=== PATIENT | male | born 1930 | race Caucasian/White ===

== ENCOUNTER → 2019-08-28 | Outpatient (CLI) | payer MEDICARE ==
--- NOTE | 2019-08-28 13:58 | XR ---
EXAMINATION TYPE: XR Hip Complete LT DATE OF EXAM: 08/28/2019 CLINICAL HISTORY: pain TECHNIQUE: AP and frogleg views of the left hip are obtained. COMPARISON: None. FINDINGS: There is no acute fracture/dislocation evident. The joint space appears mildly narrowed. The overlying soft tissue appears unremarkable. IMPRESSION: 1. There is no acute fracture or dislocation.ICD 10 NO FRACTURE, INITIAL EVALUATION
== END | disposition home or self-care (01) ==
LOC: RADXRMAIN 10:14
PROVIDERS: ATTEND Family Medicine
DX: M25.559 Pain in unspecified hip (principal)
CPT/HCPCS: 73502

== ENCOUNTER 2019-10-09 14:42 | Inpatient (IN) | payer MEDICARE ==
--- NOTE | 2019-10-09 14:59 | ED ---
General Adult HPI - General Chief complaint: Fall Stated complaint: fall Time Seen by Provider: 10/09/19 14:46 Source: patient Mode of arrival: EMS - History of Present Illness Initial comments: Dictation was produced using [employer] dictation software. please excuse any gramma tical, word or spelling errors. This patient was cared for during a federal and state declared state of emergency secondary to Covid 19 Chief Complaint: Patient is an 88-year-old male presents after fall. History of Present Illness: An is an 88-year-old male who has past medical history of Parkinson's disease. He lives at home alone. At 3 AM he got up to go get a drink of water. Patient normally ambulate with walker. Patient states that he fell. He states that he fell because he probably was dizzy. He was too weak to get up. Patient had milk delivery that was done today. When milk delivery service noted that she did not answer the door there was concern. Enforcement was called and patient was found to be on the ground. Patient denies any pain complaints at this time. States that he has a family friend that takes care of him and checks on him every once in a while. Patient has some left shoulder pain. Denies any other complaints.. Denies any dizziness. No fever, chills or night sweats. The ROS documented in this emergency department record has been reviewed and confirmed by me. Those systems with pertinent positive or negative responses have been documented in the HPI. All other systems are other negative and/or noncontributory. PHYSICAL EXAM: General Impression: Alert and oriented x3, not in acute distress HEENT: Normocephalic atraumatic, extra-ocular movements intact, pupils equal and reactive to light bilaterally, mucous membranes moist. Cardiovascular: Heart regular rate and rhythm Chest: Able to complete full sentences, no retractions, no tachypnea Abdomen: abdomen soft, non-tender, non-distended, no organomegaly Musculoskeletal: Pulses present and equal in all extremities, no peripheral edema Motor: no focal deficits noted Neurological: CN II-XII grossly intact, no focal motor or sensory deficits noted Skin: Erythematous skin to the bilateral rib margins anteriorly, bilateral knees Psych: Normal affect and mood ED course: 88 Old male with past medical history of Parkinson's disease presents after fall. Vital signs upon arrival are within acceptable limits. Laboratory evaluation obtained. No leukocytosis. CBC is within acceptable limits. Coag panel is negative. Metabolic panel shows no electrolyte derangement. There is however no onset elevated liver markers. This is unclear what caused this. Patient also has elevated creatinine kinase of 907. Troponin is 0.041. This is likely from musculoskeletal injury. Urinalysis shows no infection. Computed tomography scan of the head C-spine is negative. Shoulder x-ray pelvis x-ray shows no acute processes. Chest x-ray shows small density in the right medial lung base concerning for possible infiltrate. Patient having respiratory symptoms however considering his age and clinical presentation is concerned that perhaps he does have a pulmonary infection. Patient given that the medicine that ceftriaxone. Patient started on intravenous fluids. Case is discussed with Dr. Bernardino Bradshaw. Serum patient's social situation I do not believe is safe for patient be discharged home. Patient be admitted EKG interpretation: Ventricular rate 70, sinus rhythm, OK interval 154, QRS 84, QTC 444. No OK prolongation, no QTC prolongation, no ST or T-wave changes noted. No old EKG for comparison. Overall, this EKG is unremarkable - Related Data Home Medications Medication Instructions Recorded Confirmed Acetaminophen [Tylenol Arthritis] 650 mg PO DAILY PRN 10/09/19 10/09/19 Aspirin EC [Ecotrin Low Dose] 81 mg PO DAILY 10/09/19 10/09/19 Carbidopa-Levodopa 25-100 mg 1 tab PO BID@0800,1400 10/09/19 10/09/19 [Sinemet 25-100] Carbidopa-Levodopa ER 50-200Mg 1 tab PO BID@0800,1400 10/09/19 10/09/19 [Sinemet ER 50-200] Ipratropium-Albuterol Nebulize 3 ml INHALATION RT-QID PRN 10/09/19 10/09/19 [Duoneb 0.5 mg-3 mg/3 ml Soln] Melatonin 5 mg PO HS 10/09/19 10/09/19 Omeprazole 20 mg PO DAILY PRN 10/09/19 10/09/19 Tamsulosin [Flomax] 0.4 mg PO DAILY 10/09/19 10/09/19 amantadine HCL [Amantadine] 100 mg PO DAILY 10/09/19 10/09/19 Allergies Allergy/AdvReac Type Severity Reaction Status Date / Time No Known Allergies Allergy Unverified 10/09/19 15:39 Review of Systems ROS Statement: Those systems with pertinent positive or pertinent negative responses have been documented in the HPI. ROS Other: All systems not noted in ROS Statement are negative. Past Medical History Past Medical History: GERD/Reflux History of Any Multi-Drug Resistant Organisms: VRE Date of last positivie culture/infection: 08/09/19 MDRO Source:: Urine Past Psychological History: No Psychological Hx Reported Smoking Status: Never smoker Past Alcohol Use History: Occasional Past Drug Use History: None Reported Course Vital Signs 10/09/19 10/09/19 10/09/19 14:43 15:32 16:05 Temperature 97.5 F L Pulse Rate 69 63 64 Respiratory 18 18 18 Rate Blood Pressure 159/83 154/79 158/79 O2 Sat by Pulse 97 97 95 Oximetry Medical Decision Making - Lab Data Result diagrams: 10/09/19 15:03 10/09/19 15:03 Lab Results 10/09/19 10/09/19 10/09/19 Range/Units 15:03 15:03 15:03 WBC 8.9 (3.8-10.6) k/uL RBC 4.11 L (4.30-5.90) m/uL Hgb 11.7 L (13.0-17.5) gm/dL Hct 37.0 L (39.0-53.0) % MCV 90.1 (80.0-100.0) fL MCH 28.5 (25.0-35.0) pg MCHC 31.6 (31.0-37.0) g/dL RDW 14.4 (11.5-15.5) % Plt Count 143 L (150-450) k/uL Neutrophils % 86 % Lymphocytes % 7 % Monocytes % 5 % Eosinophils % 1 % Basophils % 0 % Neutrophils # 7.7 (1.3-7.7) k/uL Lymphocytes # 0.6 L (1.0-4.8) k/uL Monocytes # 0.5 (0-1.0) k/uL Eosinophils # 0.1 (0-0.7) k/uL Basophils # 0.0 (0-0.2) k/uL PT 11.3 (9.0-12.0) sec INR 1.1 (<1.2) APTT 25.2 (22.0-30.0) sec Sodium 139 (137-145) mmol/L Potassium 3.6 (3.5-5.1) mmol/L Chloride 106 (98-107) mmol/L Carbon Dioxide 27 (22-30) mmol/L Anion Gap 6 mmol/L BUN 19 (9-20) mg/dL Creatinine 1.15 (0.66-1.25) mg/dL Est GFR (CKD-EPI)AfAm 66 (>60 ml/min/1.73 sqM) Est GFR (CKD-EPI)NonAf 57 (>60 ml/min/1.73 sqM) Glucose 109 H (74-99) mg/dL Plasma Lactic Acid Asif (0.7-2.0) mmol/L Calcium 8.9 (8.4-10.2) mg/dL Magnesium 1.6 (1.6-2.3) mg/dL Total Bilirubin 3.2 H (0.2-1.3) mg/dL AST 518 H (17-59) U/L ALT 331 H (4-49) U/L Alkaline Phosphatase 274 H (38-126) U/L Creatine Kinase 907 H (55-170) U/L Troponin I (0.000-0.034) ng/mL Total Protein 6.0 L (6.3-8.2) g/dL Albumin 3.3 L (3.5-5.0) g/dL Urine Color Urine Appearance (Clear) Urine pH (5.0-8.0) Ur Specific [place] (1.001-1.035) Urine Protein (Negative) Urine Glucose (UA) (Negative) Urine Ketones (Negative) Urine Blood (Negative) Urine Nitrite (Negative) Urine Bilirubin (Negative) Urine Urobilinogen (<2.0) mg/dL Ur Leukocyte Esterase (Negative) Urine RBC (0-5) /hpf Urine WBC (0-5) /hpf Ur Squamous Epith Cells (0-4) /hpf Hyaline Casts (0-2) /lpf Urine Mucus (None) /hpf 10/09/19 10/09/19 10/09/19 Range/Units 15:03 15:03 16:05 WBC (3.8-10.6) k/uL RBC (4.30-5.90) m/uL Hgb (13.0-17.5) gm/dL Hct (39.0-53.0) % MCV (80.0-100.0) fL MCH (25.0-35.0) pg MCHC (31.0-37.0) g/dL RDW (11.5-15.5) % Plt Count (150-450) k/uL Neutrophils % % Lymphocytes % % Monocytes % % Eosinophils % % Basophils % % Neutrophils # (1.3-7.7) k/uL Lymphocytes # (1.0-4.8) k/uL Monocytes # (0-1.0) k/uL Eosinophils # (0-0.7) k/uL Basophils # (0-0.2) k/uL PT (9.0-12.0) sec INR (<1.2) APTT (22.0-30.0) sec Sodium (137-145) mmol/L Potassium (3.5-5.1) mmol/L Chloride (98-107) mmol/L Carbon Dioxide (22-30) mmol/L Anion Gap mmol/L BUN (9-20) mg/dL Creatinine (0.66-1.25) mg/dL Est GFR (CKD-EPI)AfAm (>60 ml/min/1.73 sqM) Est GFR (CKD-EPI)NonAf (>60 ml/min/1.73 sqM) Glucose (74-99) mg/dL Plasma Lactic Acid Asif 1.1 (0.7-2.0) mmol/L Calcium (8.4-10.2) mg/dL Magnesium (1.6-2.3) mg/dL Total Bilirubin (0.2-1.3) mg/dL AST (17-59) U/L ALT (4-49) U/L Alkaline Phosphatase (38-126) U/L Creatine Kinase (55-170) U/L Troponin I 0.041 H* (0.000-0.034) ng/mL Total Protein (6.3-8.2) g/dL Albumin (3.5-5.0) g/dL Urine Color Dark Yellow Urine Appearance Clear (Clear) Urine pH 7.0 (5.0-8.0) Ur Specific [place] 1.020 (1.001-1.035) Urine Protein 1+ H (Negative) Urine Glucose (UA) Negative (Negative) Urine Ketones Negative (Negative) Urine Blood Moderate H (Negative) Urine Nitrite Negative (Negative) Urine Bilirubin 1+ H (Negative) Urine Urobilinogen >12.0 (<2.0) mg/dL Ur Leukocyte Esterase Negative (Negative) Urine RBC 1 (0-5) /hpf Urine WBC 3 (0-5) /hpf Ur Squamous Epith Cells <1 (0-4) /hpf Hyaline Casts 4 H (0-2) /lpf Urine Mucus Rare H (None) /hpf Disposition Clinical Impression: Fall, Rhabdomyolysis Disposition: ADMITTED IP TO THIS HOSP Condition: Fair Is patient prescribed a controlled substance at d/c from ED?: No Referrals: Bernardino Bradshaw DO [Primary Care Provider] - 1-2 days Decision Time: 16:55
[2019-10-09 15:19] LABS: Basophils % (A) 0 %; Eosinophils # (A) 0.1 k/uL (0-0.7); Eosinophils % (A) 1 %; HGB 11.7 gm/dL (13.0-17.5); Lymphocytes # (A) 0.6 k/uL (1.0-4.8); Lymphocytes % (A) 7 %; MCH 28.5 pg (25.0-35.0); MCHC 31.6 g/dL (31.0-37.0); MCV 90.1 fL (80.0-100.0); Mean Platelet Volume 6.9; Monocytes # (A) 0.5 k/uL (0-1.0); Monocytes % (A) 5 %; Neutrophils # (A) 7.7 k/uL (1.3-7.7); Neutrophils % (A) 86 %; Platelet Count 143 k/uL (150-450); RBC 4.11 m/uL (4.30-5.90); RDW 14.4 % (11.5-15.5); WBC 8.9 k/uL (3.8-10.6)
[2019-10-09 15:28] LABS: Albumin 3.3 g/dL (3.5-5.0); Calcium 8.9 mg/dL (8.4-10.2); Magnesium 1.6 mg/dL (1.6-2.3); Potassium 3.6 mmol/L (3.5-5.1); Total Bilirubin 3.2 mg/dL (0.2-1.3)
--- NOTE | 2019-10-09 15:43 | CT ---
EXAMINATION TYPE: CT brain kayleen guerra con DATE OF EXAM: 10/09/2019 COMPARISON: None HISTORY: Fall. CT DLP: 1498.[address] of the brain was performed. The ventricles, basal cisterns and sulci overlying the cerebral convexities demonstrate mild enlargem ent. There is no evidence for intracranial hemorrhage or sulcal effacement. There is decreased attenuatio n about the periventricular white matter and deep white matter of both cerebral hemispheres, compatib le with chronic small vessel ischemia. No mass effects are seen. If symptoms persist consider MRI. Osseous calvarium is intact. IMPRESSION: 1. Age related atrophic and chronic small vessel ischemic change without acute intracranial process seen at this time. CT Cervical Spine: Unenhanced CT of the cervical spine was performed with bone and soft tissue window settings submitted . Coronal and sagittal reconstruction is obtained. There is normal alignment and prevertebral soft tissues. No evidence for acute cervical fracture . Scattered degenerative disc disease and spondylosis. Biapical scarring. IMPRESSION: 1. No evidence for acute fracture or subluxation of the cervical spine.
[2019-10-09 15:50] LABS: INR 1.1 (<1.2); Partial Thromboplastin Time 25.2 sec (22.0-30.0); Prothrombin Time 11.3 sec (9.0-12.0)
[2019-10-09 16:25] LABS: Appearance,Urine Clear (Clear); Bilirubin,Urine 1+ (Negative); Blood,Urine Moderate (Negative); Color,Urine Dark Yellow; Glucose,Urine (UA) Negative (Negative); Hyaline Casts,Urine 4 /lpf (0-2); Ketones,Urine Negative (Negative); Leukocyte Esterase,Urine Negative (Negative); Mucus,Urine Rare /hpf; Nitrite,Urine Negative (Negative); Protein,Urine 1+ (Negative); RBC,Urine 1 /hpf (0-5); Squamous Epithelial Cell,Urine <1 /hpf (0-4); Urobilinogen,Urine >12.0 mg/dL (<2.0); WBC,Urine 3 /hpf (0-5)
--- NOTE | 2019-10-09 16:25 | XR ---
EXAMINATION TYPE: XR shoulder complete LT DATE OF EXAM: 10/09/2019 CLINICAL HISTORY: pain COMPARISON: NONE TECHNIQUE: Three views of the left shoulder are obtained. FINDINGS: There is no acute fracture/dislocation evident. The acromioclavicular and glenohumeral bartolo int spaces appear within normal limits. The visualized ribs are intact and unremarkable. IMPRESSION: 1. There is no acute fracture or dislocation. ICD 10 NO FRACTURE, INITIAL EVALUATION
--- NOTE | 2019-10-09 16:26 | XR ---
EXAMINATION TYPE: XR pelvis AP view DATE OF EXAM: 10/09/2019 CLINICAL HISTORY: pain TECHNIQUE: Single view the pelvis is submitted. FINDINGS: No evidence for fracture, dislocation or bony lesion. Joint spaces are well-preserved. S I joints appear symmetric. IMPRESSION: 1. No acute fracture or dislocation seen. ICD 10 NO FRACTURE, INITIAL EVALUATION
--- NOTE | 2019-10-09 16:28 | XR ---
EXAMINATION TYPE: XR chest 1V portable DATE OF EXAM: 10/09/2019 HISTORY: Shortness of breath. COMPARISON: None. TECHNIQUE: Single view of the chest is submitted. FINDINGS: Demonstrated are scattered senescent parenchymal change. Increased density right medial lung base may reflect underlying infiltrate. Correlate for pneumonia. Progress studies are advised. The heart is stable. Hilar and mediastinal structures are within normal limits. Degenerative changes are seen of the dorsal spine. IMPRESSION: 1. Increased density right medial lung base may reflect underlying infiltrate. Correlate for pneumon ia. Progress studies are advised.
[2019-10-09] MEDS ORDERED: cefTRIAXone IN SWFI 1,000 MG/10 ML SYRINGE IVP STA (16:40)
[2019-10-09] MEDS ORDERED: AZITHROMYCIN 500 MG in SODIUM CHLORIDE 0.9% 250 ML IVPB STA (16:40)
[2019-10-09] MEDS ORDERED: NALOXONE 0.4 MG/ML 1 ML VIAL IV PRN (16:52)
[2019-10-09] MEDS: SODIUM CHLORIDE 0.9% 1,000 ML IV SCH (17:28)
[2019-10-09] MEDS ORDERED: PANTOPRAZOLE 40 MG TABLET PO PRN (19:57)
[2019-10-09] MEDS ORDERED: ACETAMINOPHEN TAB 325 MG TAB PO PRN (19:57)
[2019-10-09] MEDS ORDERED: IPRATROPIUM-ALBUTEROL 3 ML NEB INHALATION PRN (19:57)
[2019-10-09] MEDS: MELATONIN 5 MG TABLET PO SCH (22:48)
[2019-10-10] MEDS: CARBIDOPA-LEVODOPA 25-100 MG 1 EACH TAB PO SCH ×2 (07:58→14:54)
[2019-10-10] MEDS: ASPIRIN 81 MG PO SCH (07:58)
[2019-10-10] MEDS: CARBIDOPA-LEVODOPA ER 50-200MG 1 EACH TABLET.ER PO SCH ×2 (07:58→14:54)
[2019-10-10] MEDS: TAMSULOSIN 0.4 MG CAP.ER.24H PO SCH (07:58)
[2019-10-10 10:24] LABS: HCT 34.7 % (39.0-53.0); MCH 28.9 pg (25.0-35.0); MCHC 31.6 g/dL (31.0-37.0); MCV 91.4 fL (80.0-100.0); Mean Platelet Volume 8.6; Platelet Count 115 k/uL (150-450); RDW 14.4 % (11.5-15.5); WBC 6.6 k/uL (3.8-10.6)
[2019-10-10 10:41] LABS: Albumin 2.8 g/dL (3.5-5.0); Calcium 8.3 mg/dL (8.4-10.2); Potassium 3.8 mmol/L (3.5-5.1); Total Bilirubin 1.1 mg/dL (0.2-1.3); Total Protein 5.3 g/dL (6.3-8.2)
[2019-10-10 14:41] VITALS: BMI 27.1
[2019-10-10] MEDS ORDERED: Magnesium Replacement Protocol 1 EACH MISC MISCELLANE PRN (16:08)
[2019-10-10] MEDS ORDERED: IPRATROPIUM-ALBUTEROL 3 ML NEB INHALATION PRN (16:14)
--- NOTE | 2019-10-10 16:21 | P.HPIM ---
History of Present Illness H&P Date: 10/10/19 Chief Complaint: Status post fall, on ground X 10 hrs This is an 88-year-old gentleman with a history of Parkinson's disease, gastroesophageal reflux disease, occasional beer intake and multiple other medical issues. Patient had recently completed 33 days and subacute rehab at [facility] returning home alone a few weeks ago. Patient states he acute gotten up to the bathroom, voided, then proceeded to get a drink of water, then fell. He landed on his right side, radiology studies reported no dislocations, no fractures .He was unable to get back up and was not wearing his "first alert " band. He laid on the floor from approximately 0300 to 1300, when he was discovered by the [employer] it service delivery manager, who notified authorities that patient was not answering the door. He denies any alcohol intake. Denies fever or chills. Denies shortness of breath, denies cough. Denies chest pain, palpitations. Patient said he was probably dizzy. Patient normally ambulates with a walker. Currently denies lightheadedness dizziness or focal deficits. Afebrile, normal WBC. Hemoglobin 11.7, platelets 143. Sodium 139, potassium 3.6, BUN 19, creatinine 1.15. Glucose 109. T bili 3.2, AST 518, ALT 331, alk phos 274, creatinine kinase 907. Troponin 0.041. EKG sinus rhythm with PACs, inferior infarct, age undetermined/no prior EKG for comparison. Total protein 6, albumin 3.3. UA with rare mucus, 4 hyaline casts, negative leukocytes, 1+ bili, moderate blood and negative nitrates, 1+ protein. Chest x-ray reporting increased density right medial lung base possible underlying infiltrate, correlate for pneumonia. Received IV fluids and IV antibiotics. Review of Systems ROS Statement: Those systems with pertinent positive or pertinent negative responses have been documented in the HPI. ROS Other: All systems not noted in ROS Statement are negative. Past Medical History Past Medical History: GERD/Reflux, Neurologic Disorder Additional Past Medical History / Comment(s): parkinsons History of Any Multi-Drug Resistant Organisms: VRE Date of last positivie culture/infection: 08/09/19 MDRO Source:: Urine Additional Past Surgical History / Comment(s): hemorrhoidectomy Past Anesthesia/Blood Transfusion Reactions: No Reported Reaction Past Psychological History: No Psychological Hx Reported Smoking Status: Never smoker Past Alcohol Use History: Occasional Past Drug Use History: None Reported - Past Family History Father Additional Family Medical History / Comment(s): pt. states nobody in his family really had any major health issues Medications and Allergies Home Medications Medication Instructions Recorded Confirmed Type Acetaminophen [Tylenol Arthritis] 650 mg PO DAILY PRN 10/09/19 10/09/19 History Aspirin EC [Ecotrin Low Dose] 81 mg PO DAILY 10/09/19 10/09/19 History Carbidopa-Levodopa 25-100 mg 1 tab PO BID@0800,1400 10/09/19 10/09/19 History [Sinemet 25-100] Carbidopa-Levodopa ER 50-200Mg 1 tab PO BID@0800,1400 10/09/19 10/09/19 History [Sinemet ER 50-200] Ipratropium-Albuterol Nebulize 3 ml INHALATION RT-QID PRN 10/09/19 10/09/19 History [Duoneb 0.5 mg-3 mg/3 ml Soln] Melatonin 5 mg PO HS 10/09/19 10/09/19 History Omeprazole 20 mg PO DAILY PRN 10/09/19 10/09/19 History Tamsulosin [Flomax] 0.4 mg PO DAILY 10/09/19 10/09/19 History amantadine HCL [Amantadine] 100 mg PO DAILY 10/09/19 10/09/19 History Allergies Allergy/AdvReac Type Severity Reaction Status Date / Time No Known Allergies Allergy Unverified 10/09/19 15:39 Physical Exam Vitals: Vital Signs Temp Pulse Pulse Resp BP BP Pulse Ox 10/10/19 08:00 64 18 10/10/19 03:30 98.2 F 64 18 149/73 95 10/09/19 23:25 97.9 F 65 18 116/61 95 10/09/19 20:00 18 10/09/19 19:30 98.2 F 60 18 145/68 97 10/09/19 19:09 68 18 10/09/19 18:10 97.9 F 68 18 151/69 98 10/09/19 17:34 64 18 151/83 97 10/09/19 16:05 64 18 158/79 95 10/09/19 15:32 63 18 154/79 97 10/09/19 14:43 97.5 F L 69 18 159/83 97 Intake and Output 10/09/19 10/10/19 10/10/19 22:59 06:59 14:59 Output Total 100 100 Balance -100 -100 Output: Urine 100 100 Other: Voiding Method Urinal Urinal Urinal # Voids 1 1 # Bowel Movements 1 1 Weight 79.696 kg 81 kg PHYSICAL EXAM: VITAL SIGNS: [As above] GENERAL: Sitting up in bed, no acute HEENT: Conjunctivae normal. eyes normal. Oral mucosa moist NECK: No JVD. No thyroid enlargement. No LNs CARDIOVASCULAR: S1, S2 regular.. No murmur RESPIRATION: Breath sounds diminished in the bases. No rhonchi or crackles. No bronchial breathing. ABDOMEN: Soft, nontender . No guarding. no masses palpable. No ascites, No hepatosplenomegaly.Bowel sounds heard. LEGS: No edema. no swelling PSYCHIATRY: Alert and oriented X3, mood and affect normal. NERVOUS SYSTEM: Cranial N 2-12 grossly normal. Moves all 4 limbs. Diffuse w eakness, No focal deficits. Strength and sensation grossly intact.. Skin: Bruising distal from anterior right rib cage, no rash Joints: No active swelling. No inflammation. Lymphatic system. No LN neck axilla or groin. Results CBC & Chem 7: 10/10/19 10:14 10/10/19 10:14 Labs: Abnormal Lab Results - Last 24 Hours (Table) 10/09/19 10/09/19 10/09/19 Range/Units 15:03 15:03 15:03 RBC 4.11 L (4.30-5.90) m/uL Hgb 11.7 L (13.0-17.5) gm/dL Hct 37.0 L (39.0-53.0) % Plt Count 143 L (150-450) k/uL Lymphocytes # 0.6 L (1.0-4.8) k/uL Glucose 109 H (74-99) mg/dL Total Bilirubin 3.2 H (0.2-1.3) mg/dL AST 518 H (17-59) U/L ALT 331 H (4-49) U/L Alkaline Phosphatase 274 H (38-126) U/L Creatine Kinase 907 H (55-170) U/L Troponin I 0.041 H* (0.000-0.034) ng/mL Total Protein 6.0 L (6.3-8.2) g/dL Albumin 3.3 L (3.5-5.0) g/dL Urine Protein (Negative) Urine Blood (Negative) Urine Bilirubin (Negative) Hyaline Casts (0-2) /lpf Urine Mucus (None) /hpf 10/09/19 Range/Units 16:05 RBC (4.30-5.90) m/uL Hgb (13.0-17.5) gm/dL Hct (39.0-53.0) % Plt Count (150-450) k/uL Lymphocytes # (1.0-4.8) k/uL Glucose (74-99) mg/dL Total Bilirubin (0.2-1.3) mg/dL AST (17-59) U/L ALT (4-49) U/L Alkaline Phosphatase (38-126) U/L Creatine Kinase (55-170) U/L Troponin I (0.000-0.034) ng/mL Total Protein (6.3-8.2) g/dL Albumin (3.5-5.0) g/dL Urine Protein 1+ H (Negative) Urine Blood Moderate H (Negative) Urine Bilirubin 1+ H (Negative) Hyaline Casts 4 H (0-2) /lpf Urine Mucus Rare H (None) /hpf Thrombosis Risk Factor Assmnt - Choose All That Apply Any of the Below Risk Factors Present?: Yes Each Factor Represents 1 point: Medical pt on bed rest, Obesity (BMI >25), Serious lung disease incl. pneumonia (< 1month) Other Risk Factors: Yes Each Risk Factor Represents 3 Points: Age 75 years or older Other congenital or acquired thrombophilia - If yes, enter type in comment: No Thrombosis Risk Factor Assessment Total Risk Factor Score: 6 Thrombosis Risk Factor Assessment Level: High Risk Assessment and Plan Assessment: Acute rhabdomyolysis ,Status post fall, laid on ground 10 hours Possible acute right lower lobe pneumonia, possible aspiration Possible acute UTI Elevated troponin, serial troponins in progress Hyperbilirubinemia, etiology unclear Elevated LFTs, etiology unclear Parkinson's disease Gastroesophageal reflux disease Mild protein calorie malnutrition Hypomagnesemia Gait dysfunction, uses a walker Medical debility Plan: Continue on current medication regime, monitoring and symptomatic treatment. Serial troponins ordered. Maintain IV fluid hydration. GI consulted regarding elevated LFTs .Close monitoring of LFTs, CK, renal function, electrolytes with repeat labs ordered for a.m. Speech therapy consulted for swallow evaluation/rule out aspiration. PT/OT consulted. Coronavirus testing ordered, suspect subacute rehab at discharge. Discussed with patient that he probably should consider living in an assisted living. Social work consulted. The impression and plan of care has been dictated as directed. : I performed a history and examination of this patient, discussed the same with the dictator. I agree with the dictator's note ,documented as a scribe. Any additional findings or plans will be noted.[id number]
[2019-10-10] MEDS: AZITHROMYCIN 500 MG in SODIUM CHLORIDE 0.9% 250 ML IVPB SCH (18:57)
[2019-10-10] MEDS: IPRATROPIUM-ALBUTEROL 3 ML NEB INHALATION SCH (19:05)
[2019-10-10] MEDS: SODIUM CHLORIDE 0.9% 1,000 ML IV SCH ×2 (20:05→21:31)
[2019-10-10] MEDS: MELATONIN 5 MG TABLET PO SCH (21:31)
[2019-10-11 07:17] LABS: Basophils % (A) 1 %; Eosinophils # (A) 0.4 k/uL (0-0.7); Eosinophils % (A) 7 %; HCT 35.2 % (39.0-53.0); HGB 10.9 gm/dL (13.0-17.5); Hypochromasia Slight; Lymphocytes # (A) 0.9 k/uL (1.0-4.8); Lymphocytes % (A) 17 %; MCH 28.5 pg (25.0-35.0); Mean Platelet Volume 7.5; Monocytes # (A) 0.3 k/uL (0-1.0); Monocytes % (A) 5 %; Neutrophils # (A) 3.6 k/uL (1.3-7.7); Neutrophils % (A) 68 %; Platelet Count 117 k/uL (150-450); RBC 3.83 m/uL (4.30-5.90); RDW 14.4 % (11.5-15.5); WBC 5.4 k/uL (3.8-10.6)
[2019-10-11 07:40] LABS: Albumin 2.7 g/dL (3.5-5.0); Calcium 8.4 mg/dL (8.4-10.2); Magnesium 1.7 mg/dL (1.6-2.3); Potassium 4.1 mmol/L (3.5-5.1); Total Bilirubin 0.6 mg/dL (0.2-1.3); Total Protein 5.3 g/dL (6.3-8.2)
[2019-10-11] MEDS: IPRATROPIUM-ALBUTEROL 3 ML NEB INHALATION SCH ×4 (08:05→19:53)
[2019-10-11] MEDS: TAMSULOSIN 0.4 MG CAP.ER.24H PO SCH (09:33)
[2019-10-11] MEDS: ASPIRIN 81 MG PO SCH ×2 (09:33→09:38)
[2019-10-11] MEDS: CARBIDOPA-LEVODOPA 25-100 MG 1 EACH TAB PO SCH ×2 (09:33→14:01)
[2019-10-11] MEDS: CARBIDOPA-LEVODOPA ER 50-200MG 1 EACH TABLET.ER PO SCH ×2 (09:33→14:01)
[2019-10-11] MEDS: AZITHROMYCIN 500 MG in SODIUM CHLORIDE 0.9% 250 ML IVPB SCH (10:30)
--- NOTE | 2019-10-11 12:07 | P.CONS ---
History of Present Illness - Reason for Consult Consult date: 10/10/19 Elevated liver enzymes Requesting physician: Bernardino Bradshaw - Chief Complaint Mechanical fall - History of Present Illness 88-year-old male with a medical history significant for Parkinson's disease, pneumonia and GERD who presented to the hospital secondary to a mechanical fall. The patient was found down and had been on the floor for an extended period of time. Patient was found to have elevated creatinine kinase of 905 and is being treated for rhabdomyolysis. He has no history of liver disease or alcohol abuse. He was found to have an acute elevation in his liver enzymes on presentation with a total bilirubin 3.2, alkaline phosphatase 274, AST 331 and ALT 274 which have improved with medical treatment with total bilirubin 1.1, alkaline phosphatase 217, AST 47 and ALT 217. Other laboratory evaluation significant for WBC 6.6, hemoglobin 11 and platelet count 115,000. Review of Systems REVIEW OF SYSTEMS: CONSTITUTIONAL: Denies any fevers, chills, weight change or fatigue. CARDIOVASCULAR: Denies any chest pain, palpitations high or low blood pressures RESPIRATORY: Denies any shortness of breath, hemoptysis or cough. GENITOURINARY: No dysuria or hematuria. MUSCULOSKELETAL: No weakness reported. SKIN: Denies any new rashes or lesions, jaundice or pallor. PSYCHIATRIC: Denies any depression or anxiety. NEUROLOGY: Denies headache, denies any new focal deficits. EARS/NOSE/THROAT: No recent hearing change, congestion, nasal discharge or sore throat. EYES: No pain in eyes, discharge or change in vision. GASTROINTESTINAL: As per HPI. 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 states nobody in his family really had any major health issues Medications and Allergies Home Medications Medication Instructions Recorded Confirmed Type Acetaminophen [Tylenol Arthritis] 650 mg PO DAILY PRN 10/09/19 10/09/19 History Aspirin EC [Ecotrin Low Dose] 81 mg PO DAILY 10/09/19 10/09/19 History Carbidopa-Levodopa 25-100 mg 1 tab PO BID@0800,1400 10/09/19 10/09/19 History [Sinemet 25-100] Carbidopa-Levodopa ER 50-200Mg 1 tab PO BID@0800,1400 10/09/19 10/09/19 History [Sinemet ER 50-200] Ipratropium-Albuterol Nebulize 3 ml INHALATION RT-QID PRN 10/09/19 10/09/19 History [Duoneb 0.5 mg-3 mg/3 ml Soln] Melatonin 5 mg PO HS 10/09/19 10/09/19 History Omeprazole 20 mg PO DAILY PRN 10/09/19 10/09/19 History Tamsulosin [Flomax] 0.4 mg PO DAILY 10/09/19 10/09/19 History amantadine HCL [Amantadine] 100 mg PO DAILY 10/09/19 10/09/19 History Allergies Allergy/AdvReac Type Severity Reaction Status Date / Time No Known Allergies Allergy Unverified 10/09/19 15:39 Physical Exam Vitals: Vital Signs Temp Pulse Pulse Resp BP BP Pulse Ox 10/10/19 12:00 69 18 122/73 94 L 10/10/19 08:00 64 18 10/10/19 03:30 98.2 F 64 18 149/73 95 10/09/19 23:25 97.9 F 65 18 116/61 95 10/09/19 20:00 18 10/09/19 19:30 98.2 F 60 18 145/68 97 10/09/19 19:09 68 18 10/09/19 18:10 97.9 F 68 18 151/69 98 10/09/19 17:34 64 18 151/83 97 10/09/19 16:05 64 18 158/79 95 10/09/19 15:32 63 18 154/79 97 10/09/19 14:43 97.5 F L 69 18 159/83 97 Intake and Output 10/09/19 10/10/19 10/10/19 22:59 06:59 14:59 Intake Total 240 Output Total 100 100 Balance -100 140 Intake: Oral 240 Output: Urine 100 100 Other: Voiding Method Urinal Urinal Urinal # Voids 1 1 # Bowel Movements 1 1 Weight 79.696 kg 81 kg On physical examination, patient appears comfortable in no apparent distress. HEAD: Normocephalic, atraumatic. EYES: No scleral icterus. No conjunctival injection. MOUTH: No lesions, tongue midline. NECK: Trachea midline, no gross abnormalities. CHEST: Clear to auscultation with no wheezing or rhonchi appreciated. HEART: S1S2 appreciated. ABDOMEN: Soft. Bowel sounds are positive. No organomegaly. No guarding or ri gidity. EXTREMITIES: No pedal edema. SKIN: No rashes, no jaundice. NEUROLOGIC: Alert and oriented x3, tremor. No focal deficits. Results CBC & Chem 7: 10/11/19 06:17 10/11/19 06:17 Labs: Abnormal Lab Results - Last 24 Hours (Table) 10/09/19 10/09/19 10/09/19 Range/Units 15:03 15:03 15:03 RBC 4.11 L (4.30-5.90) m/uL Hgb 11.7 L (13.0-17.5) gm/dL Hct 37.0 L (39.0-53.0) % Plt Count 143 L (150-450) k/uL Lymphocytes # 0.6 L (1.0-4.8) k/uL Chloride (98-107) mmol/L Glucose 109 H (74-99) mg/dL Calcium (8.4-10.2) mg/dL Total Bilirubin 3.2 H (0.2-1.3) mg/dL AST 518 H (17-59) U/L ALT 331 H (4-49) U/L Alkaline Phosphatase 274 H (38-126) U/L Creatine Kinase 907 H (55-170) U/L Troponin I 0.041 H* (0.000-0.034) ng/mL Total Protein 6.0 L (6.3-8.2) g/dL Albumin 3.3 L (3.5-5.0) g/dL Urine Protein (Negative) Urine Blood (Negative) Urine Bilirubin (Negative) Hyaline Casts (0-2) /lpf Urine Mucus (None) /hpf 10/09/19 10/10/19 10/10/19 Range/Units 16:05 10:14 10:14 RBC 3.80 L (4.30-5.90) m/uL Hgb 11.0 L (13.0-17.5) gm/dL Hct 34.7 L (39.0-53.0) % Plt Count 115 L (150-450) k/uL Lymphocytes # (1.0-4.8) k/uL Chloride 109 H (98-107) mmol/L Glucose 117 H (74-99) mg/dL Calcium 8.3 L (8.4-10.2) mg/dL Total Bilirubin (0.2-1.3) mg/dL AST 222 H (17-59) U/L ALT (4-49) U/L Alkaline Phosphatase 217 H (38-126) U/L Creatine Kinase 905 H (55-170) U/L Troponin I (0.000-0.034) ng/mL Total Protein 5.3 L (6.3-8.2) g/dL Albumin 2.8 L (3.5-5.0) g/dL Urine Protein 1+ H (Negative) Urine Blood Moderate H (Negative) Urine Bilirubin 1+ H (Negative) Hyaline Casts 4 H (0-2) /lpf Urine Mucus Rare H (None) /hpf US - abdomen: pending (Pending) Assessment and Plan (1) Elevated liver enzymes Narrative/Plan: 88-year-old male with multiple medical comorbidities who presented to the hospital secondary to a mechanical fall and was found to have elevation in creatinine kinase and is currently being treated for rhabdomyolysis. Patient's liver enzymes initially elevated on presentation have improved with total bilirubin 1.1, alkaline phosphatase 217, AST 47 and ALT 217. Suspicion is for elevation in liver enzymes secondary to rhabdomyolysis, with plan for acute viral hepatitis panel and ultrasound of liver to rule out any other underlying etiology. Full liver serology will be ordered if liver enzymes do not improve accordingly. Current Visit: Yes Status: Acute Code(s): R74.8 - ABNORMAL LEVELS OF OTHER SERUM ENZYMES SNOMED Code(s): 202781477 Plan: Supportive care Okay for diet as tolerated Avoid hepatotoxic medications Continue to monitor CBC, BMP, LFTs Ultrasound of the abdomen ordered Acute viral hepatitis panel ordered We will continue to monitor labs and clinically Thank you for allowing us to participate in the care of the patient
[2019-10-11] MEDS: SODIUM CHLORIDE 0.9% 1,000 ML IV SCH ×3 (13:49→20:34)
--- NOTE | 2019-10-11 13:56 | P.PN ---
Subjective Progress Note Date: 10/11/19 .This is an 88-year-old gentleman with a history of Parkinson's disease, gastroesophageal reflux disease, occasional beer intake and multiple other medical issues. Patient had recently completed 33 days and subacute rehab at [facility] returning home alone a few weeks ago. Patient states he acute gotten up to the bathroom, voided, then proceeded to get a drink of water, then fell. He landed on his right side, radiology studies reported no dislocations, no fractures .He was unable to get back up and was not wearing his "first alert " band. He laid on the floor from approximately 0300 to 1300, when he was discovered by the [employer] service delivery analyst, who notified authorities that patient was not answering the door. He denies any alcohol intake. Denies fever or chills. Denies shortness of breath, denies cough. Denies chest pain, palpitations. Patient said he was probably dizzy. Patient normally ambulates with a walker. Currently denies lightheadedness dizziness or focal deficits. Afebrile, normal WBC. Hemoglobin 11.7, platelets 143. Sodium 139, potassium 3.6, BUN 19, creatinine 1.15. Glucose 109. T bili 3.2, AST 518, ALT 331, alk phos 274, creatinine kinase 907. Troponin 0.041. EKG sinus rhythm with PACs, inferior infarct, age undetermined/no prior EKG for comparison. Total protein 6, albumin 3.3. UA with rare mucus, 4 hyaline casts, negative leukocytes, 1+ bili, moderate blood and negative nitrates, 1+ protein. Chest x-ray reporting increased density right medial lung base possible underlying infiltrate, correlate for pneumonia. Received IV fluids and IV antibiotics. 10/11/19 evaluated by GI with recommendations noted and appreciated. Hepatitis panel pending .Initially scheduled for ultrasound of liver and patient had consumed breakfast so rescheduled for tomorrow. Maintained on IV fluid hydration with LFTs, T bili, CPK improving. Good diet intake. Speech evaluation pending. Afebrile, normal WBC. Denies chest pain, palpitations or shortness of breath. Objective - Vital Signs Vital signs: Vital Signs Temp 98.7 F 10/11/19 09:25 Pulse 68 10/11/19 11:44 Resp 18 08/28/20 09:25 BP 132/77 10/11/19 09:25 Pulse Ox 93 L 10/11/19 09:25 Intake & Output 10/10/19 10/11/19 10/11/19 18:59 06:59 18:59 Intake Total 360 120 Output Total 100 Balance 260 120 Weight 81 kg 82.5 kg Intake: Oral 360 120 Output: Urine 100 Other: Voiding Method Urinal Urinal Urinal # Voids 1 1 # Bowel Movements 0 1 - Exam PHYSICAL EXAM: VITAL SIGNS: [As above] GENERAL: Sitting up in bed, no acute. HEENT: Conjunctivae normal. eyes normal. No scleral icterus. Oral mucosa moist NECK: No JVD. No thyroid enlargement. No LNs CARDIOVASCULAR: S1, S2 regular. No murmur RESPIRATION: Breath sounds diminished in the bases. No rhonchi or crackles. ABDOMEN: Soft, nontender . No guarding. no masses palpable. Positive Bowel sounds heard. LEGS: No edema. no swelling PSYCHIATRY: Alert and oriented X3, mood and affect normal. NERVOUS SYSTEM: Cranial N 2-12 grossly normal. Moves all 4 limbs. Diffuse weakness, No focal deficits. Strength and sensation grossly intact.. Skin: Bruising distal from anterior right rib cage, no rash - Labs CBC & Chem 7: 10/11/19 06:17 10/11/19 06:17 Labs: Abnormal Lab Results - Last 24 Hours (Table) 10/11/19 10/11/19 Range/Units 06:17 06:17 RBC 3.83 L (4.30-5.90) m/uL Hgb 10.9 L (13.0-17.5) gm/dL Hct 35.2 L (39.0-53.0) % Plt Count 117 L (150-450) k/uL Lymphocytes # 0.9 L (1.0-4.8) k/uL Chloride 108 H (98-107) mmol/L Glucose 103 H (74-99) mg/dL AST 106 H (17-59) U/L ALT 86 H (4-49) U/L Alkaline Phosphatase 177 H (38-126) U/L Creatine Kinase 332 H (55-170) U/L Total Protein 5.3 L (6.3-8.2) g/dL Albumin 2.7 L (3.5-5.0) g/dL Microbiology - Last 24 Hours (Table) 10/09/19 17:12 Blood Culture - Preliminary Blood No Growth after 24 hours Assessment and Plan Assessment: Acute rhabdomyolysis ,Status post fall, laid on ground 10 hours Possible acute right lower lobe pneumonia, possible aspiration Possible acute UTI Elevated troponin, serial troponins in progress Hyperbilirubinemia, etiology unclear Elevated LFTs, etiology unclear, suspected related to rhabdomyolysis, hepatitis panel pending, liver ultrasound pending Parkinson's disease Gastroesophageal reflux disease Mild protein calorie malnutrition Hypomagnesemia Gait dysfunction, uses a walker Medical debility Plan: Continue on current medication regime, monitoring and symptomatic treatment. Maintain IV fluid hydration. GI workup in progress including Ultrasound of liver pending. Crews virus testing pending. Continued close monitoring of LFTs, CK, hematology profile.Discharge planning in progress for subacute rehab. after gi w/u completed and coronavirus testing resulted. The impression and plan of care has been dictated as directed. : I performed a history and examination of this patient, discussed the same with the dictator. I agree with the dictator's note ,documented as a scribe. Any additional findings or plans will be noted.[id number]
--- NOTE | 2019-10-11 15:04 | CDI ---
Documentation Clarification Form Date: 10/11/2019 02:40:28 PM From: Angelita Fulton RN CCDS Admit Date: 10/09/2019 04:52:00 PM Patient Name: Akbar Salgado Visit Number: [id number] Discharge Date: ATTENTION: The Clinical Documentation Specialists (CDI) and [facility] Coding Staff appreciate your assistance in clarifying documentation. Please respond to the clarification below the line at the bottom and electronically sign. The CDI & [facility] Coding staff will review the response and follow-up if needed. Please note: Queries are made part of the Legal Health Record. If you have any questions, please contact the author of this message via ITS. Dr. Bernardino Bradshaw Please render your impression on the documentation of Rhabdomyolysis History/Risk Factors: 88-year-old male presents to the ED after being found on ground for 10 hours after a fall. Medical History: Parkinsons disease. The patient recently completed 33 days at subacute rehab returned home alone a few weeks ago. Patient admitted with Possible Aspiration Pneumonia, Acute Rhabdomyolysis and Possible Acute UTI Clinical Indicators: 10/08 CXR: Increased density right medial lung base may reflect underlying infiltrate. Labs: Wbc 10/08 8.9; Creatinine Kinase 10/08: 907; 10/09: 905; 10/10: 332 Treatment: 10/08- 0.9ns 100cchr; Rocephin Iv Daily; Azithromycin Iv Daily In your professional opinion, can you please clarify the etiology of the condition? Traumatic rhabdomyolysis due to fall Traumatic rhabdomyolysis due to prolonged immobility Non traumatic rhabdomyolysis due to medication (please specify) Non traumatic rhabdomyolysis due to infection (please specify) Other, please specify Unable to determine 10/14 TEMO Johnson NP Acute Traumatic Rhabdomyolysis secondary to fall with prolonged immobility laid on ground x10 hours. (Last Revision: February 2019) MTDD
[2019-10-11] MEDS ORDERED: amLODIPine 5 MG TAB PO STA (15:59)
[2019-10-11 16:49] LABS: Hepatitis A Antibody IgM Non-Reactive (Non-Reactive); Hepatitis B Core IgM Non-Reactive (Non-Reactive); Hepatitis B Surface Antigen Non-Reactive (Non-Reactive); Hepatitis C IgG Antibody Non-Reactive (Non-Reactive)
[2019-10-11] MEDS: MELATONIN 5 MG TABLET PO SCH (20:34)
[2019-10-12] MEDS: SODIUM CHLORIDE 0.9% 1,000 ML IV SCH ×2 (05:39→18:00)
[2019-10-12 08:00] LABS: Basophils % (A) 1 %; Eosinophils # (A) 0.3 k/uL (0-0.7); Eosinophils % (A) 8 %; HCT 36.2 % (39.0-53.0); HGB 11.1 gm/dL (13.0-17.5); Hypochromasia Slight; Lymphocytes # (A) 0.9 k/uL (1.0-4.8); Lymphocytes % (A) 20 %; MCH 28.1 pg (25.0-35.0); MCHC 30.6 g/dL (31.0-37.0); MCV 91.7 fL (80.0-100.0); Mean Platelet Volume 7.3; Monocytes # (A) 0.3 k/uL (0-1.0); Monocytes % (A) 7 %; Neutrophils # (A) 2.7 k/uL (1.3-7.7); Neutrophils % (A) 62 %; Platelet Count 122 k/uL (150-450); RBC 3.95 m/uL (4.30-5.90); RDW 14.3 % (11.5-15.5); WBC 4.3 k/uL (3.8-10.6)
[2019-10-12 08:06] LABS: Albumin 2.9 g/dL (3.5-5.0); Calcium 8.8 mg/dL (8.4-10.2); Potassium 3.9 mmol/L (3.5-5.1); Total Bilirubin 0.5 mg/dL (0.2-1.3); Total Protein 5.4 g/dL (6.3-8.2)
--- NOTE | 2019-10-12 08:32 | US ---
EXAMINATION TYPE: US abdomen complete DATE OF EXAM: 10/12/2019 COMPARISON: NONE CLINICAL HISTORY: 88-year-old male Elevated liver enzymes. TECHNIQUE: Multiple sonographic images of the abdomen are obtained. FINDINGS: EXAM MEASUREMENTS: Liver Length: 13.1 cm Gallbladder Wall: 0.5 cm CBD: 0.5 cm Spleen:14.1 cm Right Kidney: 9.5 x 4.9 x 4.7 cm Left Kidney: one intercostal window, small portion of superior pole seen, unable to measure Supervisor [employer] notes: 88 year old patient, unable to move or hold his breath for examiner. Technically d ifficult, very limited study. Pancreas: Obscured by bowel gas Liver: wnl as seen, very limited visualization Gallbladder: wnl as seen, very limited visualization, wall may be thickened Evidence for sonographic Guerrero's sign: No CBD: wnl as seen, very limited visualization Spleen: Mildly enlarged, very limited visualization Right Kidney: Inferior pole obscured by bowel gas Left Kidney: one intercostal window, small portion of superior pole seen Upper IVC: wnl Abd Aorta: Midportion is ectatic at 2.8 cm. Proximally is obscured. IMPRESSION: 1. Technically difficult and limited exam. 2. Nonspecific mild gallbladder wall thickening without ancillary findings of acute cholecystitis. 3. No biliary ductal dilatation. 4. Mild splenomegaly at 14.1 cm. Ectatic mid abdominal aorta 2.8 cm.
[2019-10-12] MEDS: IPRATROPIUM-ALBUTEROL 3 ML NEB INHALATION SCH ×4 (08:41→19:14)
[2019-10-12] MEDS: ASPIRIN 81 MG PO SCH (09:08)
[2019-10-12] MEDS: TAMSULOSIN 0.4 MG CAP.ER.24H PO SCH (09:08)
[2019-10-12] MEDS: CARBIDOPA-LEVODOPA ER 50-200MG 1 EACH TABLET.ER PO SCH ×2 (09:08→14:25)
[2019-10-12] MEDS: CARBIDOPA-LEVODOPA 25-100 MG 1 EACH TAB PO SCH ×2 (09:08→14:25)
[2019-10-12] MEDS: AZITHROMYCIN 500 MG in SODIUM CHLORIDE 0.9% 250 ML IVPB SCH (10:58)
--- NOTE | 2019-10-12 17:47 | PN ---
PROGRESS NOTE DATE OF SERVICE: 10/12/2019 I am covering for Dr. Bradshaw. This 88-year-old woman with a past medical history of multiple medical problems admitted with acute rhabdomyolysis after fall. Patient was apparently lying on the ground for almost 10 hours. The patient also had right lower lobe pneumonia considered to be aspiration. The patient being closely monitored. Patient also had elevated LFTs. The patient also had abdominal ultrasound today which showed mild splenomegaly at 14.1 cm and the patient also seen by Dr. Noel from Gastroenterology. The patient also had elevated liver enzymes. Supportive care is also recommended by Dr. Noel. No chest pain. No palpitations. Past medical history reviewed. REVIEW OF SYSTEMS: CARDIOVASCULAR SYSTEM: No angina or palpitations. RESPIRATORY SYSTEM: As mentioned earlier. GI: As mentioned earlier. : No dysuria. CURRENT MEDICATIONS: 1. Tylenol p.r.n. 2. DuoNeb q.i.d. 3. Symmetrel. 4. Aspirin. 5. Zithromax. 6. Sinemet. 7. Rocephin. 8. Magnesium. 9. Narcan. 10.Protonix. 11.Flomax. PHYSICAL EXAMINATION: Patient is alert and oriented times three. Pulse 63, blood pressure 111/64. Respirations 18, temp 97.7, pulse ox 98% on room air. HEENT: Conjunctivae normal. NECK: No JVD. CARDIOVASCULAR: S1, S2 muffled. RESPIRATION: Breath sounds diminished in the bases. A few scattered rhonchi and crackles. ABDOMEN: Soft, nontender. LEGS: No edema. No swelling. NERVOUS SYSTEM: No focal deficits. LABS: WBC 4.2, hemoglobin 11.1, sodium 139, potassium 3.9. AST is 57, ALT is 58, alk phos is 174, and hepatitis is apparently nonreactive. CK improved. ASSESSMENT: 1. Acute rhabdomyolysis secondary to fall lying for 10 hours. 2. Acute right lower lobe pneumonia possibly aspiration. 3. Acute urinary tract infection present on admission. 4. Elevated troponin of undetermined significance. 5. Hyperbilirubinemia. 6. Elevated LFTs possibly hepatitis of undetermined etiology. 7. Parkinson disease. 8. Gastroesophageal reflux disease. 9. Mild protein calorie malnutrition. 10.Hypomagnesemia. 11.Gait dysfunction. 12.Medical debility. RECOMMENDATIONS AND DISCUSSION: I recommend to continue current medications, management and symptomatic treatment. PT/OT evaluation. The patient has significant tremors and gait dysfunction. Repeat labs. Continue the current medications including empiric antibiotics. Guarded prognosis because of multiple complex medical issues. Further recommendations to follow. Dr. Bradshaw will follow on Monday. NUNU / NOEMÍ: [id number] /
[2019-10-12] MEDS: MELATONIN 5 MG TABLET PO SCH (21:27)
[2019-10-13] MEDS: IPRATROPIUM-ALBUTEROL 3 ML NEB INHALATION SCH ×4 (07:37→19:17)
[2019-10-13] MEDS: SODIUM CHLORIDE 0.9% 1,000 ML IV SCH ×3 (08:07→21:46)
[2019-10-13 08:09] LABS: ALT 51 U/L (4-49); AST 55 U/L (17-59); African American GFR (CKD) >90 (>60 ml/min/1.73 sqM); Albumin 2.9 g/dL (3.5-5.0); Alkaline Phosphatase 157 U/L (38-126); Anion Gap 3 mmol/L; Blood Urea Nitrogen 12 mg/dL (9-20); Calcium 8.6 mg/dL (8.4-10.2); Carbon Dioxide 28 mmol/L (22-30); Chloride 108 mmol/L (98-107); Glucose 95 mg/dL (74-99); Non-African American GFR(CKD) 78 (>60 ml/min/1.73 sqM); Potassium 3.5 mmol/L (3.5-5.1); Sodium 139 mmol/L (137-145); Total Bilirubin 0.5 mg/dL (0.2-1.3); Total Protein 5.5 g/dL (6.3-8.2)
[2019-10-13] MEDS: CARBIDOPA-LEVODOPA ER 50-200MG 1 EACH TABLET.ER PO SCH ×2 (08:13→15:19)
[2019-10-13] MEDS: TAMSULOSIN 0.4 MG CAP.ER.24H PO SCH (08:13)
[2019-10-13] MEDS: CARBIDOPA-LEVODOPA 25-100 MG 1 EACH TAB PO SCH ×2 (08:13→15:19)
[2019-10-13] MEDS: ASPIRIN 81 MG PO SCH (08:13)
[2019-10-13] MEDS: AZITHROMYCIN 500 MG in SODIUM CHLORIDE 0.9% 250 ML IVPB SCH (09:47)
--- NOTE | 2019-10-13 11:04 | P.PN ---
Subjective Progress Note Date: 10/12/19 Principal diagnosis: Elevated liver enzymes Patient is seen sitting bedside with no acute complaints. Tolerating his diet. No abdominal pain reported. Objective - Vital Signs Vital signs: Vital Signs Temp 97.7 F 10/12/19 08:57 Pulse 45 L 10/12/19 08:57 Resp 16 10/12/19 08:57 BP 161/70 10/12/19 08:57 Pulse Ox 96 10/12/19 08:57 Intake & Output 10/11/19 10/12/19 10/12/19 18:59 06:59 18:59 Intake Total 120 Balance 120 Weight 81 kg Intake: Oral 120 Other: Voiding Method Urinal Urinal Incontinent # Voids 2 2 # Bowel Movements 1 - Exam On physical examination, patient appears comfortable in no apparent distress. HEAD: Normocephalic, atraumatic. EYES: No scleral icterus. No conjunctival injection. MOUTH: No lesions, tongue midline. NECK: Trachea midline, no gross abnormalities. ABDOMEN: Soft, obese. Bowel sounds are positive. No organomegaly. No guarding or rigidity. EXTREMITIES: No pedal edema. SKIN: No rashes, no jaundice. NEUROLOGIC: Alert and oriented x3. No focal deficits. - Labs CBC & Chem 7: 10/12/19 07:09 10/13/19 07:40 Labs: Abnormal Lab Results - Last 24 Hours (Table) 10/12/19 10/12/19 Range/Units 07:09 07:09 RBC 3.95 L (4.30-5.90) m/uL Hgb 11.1 L (13.0-17.5) gm/dL Hct 36.2 L (39.0-53.0) % MCHC 30.6 L (31.0-37.0) g/dL Plt Count 122 L (150-450) k/uL Lymphocytes # 0.9 L (1.0-4.8) k/uL Chloride 109 H (98-107) mmol/L ALT 58 H (4-49) U/L Alkaline Phosphatase 174 H (38-126) U/L Total Protein 5.4 L (6.3-8.2) g/dL Albumin 2.9 L (3.5-5.0) g/dL Microbiology - Last 24 Hours (Table) 10/09/19 17:12 Blood Culture - Preliminary Blood No Growth after 48 hours Assessment and Plan (1) Elevated liver enzymes Narrative/Plan: 88-year-old male with multiple medical comorbidities who presented to the hospital secondary to a mechanical fall and was found to have elevation in creatinine kinase and is currently being treated for rhabdomyolysis. Patient's liver enzymes initially elevated on presentation have improved with total bilirubin 1.1, alkaline phosphatase 217, AST 47 and ALT 217. Suspicion is for elevation in liver enzymes secondary to rhabdomyolysis, with plan for acute viral hepatitis panel and ultrasound of liver to rule out any other underlying etiology. Liver enzymes have continued to trend down almost back to normal at this time. Suspicion as stated above otherwise for elevation secondary to rhabdomyolysis. Current Visit: Yes Status: Acute Code(s): R74.8 - ABNORMAL LEVELS OF OTHER SERUM ENZYMES SNOMED Code(s): 783398516 Plan: Supportive care Okay for diet as tolerated Avoid hepatotoxic medications Continue to monitor CBC, BMP, LFTs Ultrasound of the abdomen essentially normal Acute viral hepatitis panel negative Okay for discharge when otherwise stable from GI standpoint Thank you for allowing us to participate in the care of the patient, the GI service will stand by, please calls back with any questions or concerns
[2019-10-13] MEDS: IOPAMIDOL CONTRAST (ORAL USE) VIAL PO PRN ×2 (16:14→17:10)
--- NOTE | 2019-10-13 18:31 | CT ---
EXAMINATION TYPE: CT abdomen pelvis wo con DATE OF EXAM: 10/13/2019 COMPARISON: Correlation ultrasound 10/12/2019 HISTORY: 88-year-old male Cholecystitis, splenomegaly. CT DLP: 770 mGycm. Automated exposure control for dose reduction was used. TECHNIQUE: Contiguous axial scanning of the abdomen and pelvis without IV contrast. Coronal and sagit colby reconstructions performed. FINDINGS: Heart upper limits of normal in size without pericardial effusion. Ectatic aortic root at 3.8 cm. Thr ee-vessel coronary artery calcifications are present. Tortuous descending thoracic aorta aneurysmal u p to 3.5 cm. At the diaphragmatic hiatus, the aorta is aneurysmal at 3.4 cm. Mid abdominal aorta palma ures 2.7 cm. Mild generalized anasarca change in trace right pleural effusion. Patchy posterior basilar opacities probably atelectasis. Calcified granuloma in the mid liver. Noncontrast appearance of the liver, adrenal glands, right kidn ey, otherwise shows no gross quality. Gallstones measuring 1.1 cm. No abnormal gallbladder distention. Mild hazy density is around the pancreas probably due to these underlying anasarca change. Correlatio n can be made to exclude the possibility of acute pancreatitis. Calcified granulomas within the spleen is mildly enlarged at 14.1 cm. Small 2.4 cm diverticulum of the second/third portion of the duodenum projecting into the pancreatic head region. There appears to be some wall thickening along the lesser curvature of the gastric fundus and proxima l body, reference axial images 20 through 24 and coronal image 41 and 42. No dilated small bowel, free fluid, or free air. No mesenteric or retroperitoneal lymphadenopathy see n. Oral contrast progressed to the distal thoracic transverse colon. Mild to moderate stool burden. No p ericolonic inflammatory change. Bladder partially distended. Distal left ureter is slightly patulous for a short segment. Prostate gl and is enlarged at 5.3 cm wide with lobulated soft tissue measuring up to 2.6 cm protruding into the posterior bladder base, refer to axial images 68 through 71 and sagittal image 75. Moderate presacral dependent edema. No pelvic lymphadenopathy seen. Pelvic phleboliths. Bones: Mild degenerative change of the hips. Advanced degenerative disc disease and facet arthropathy throughout the lumbar spine with degenerative levoconvex curvature. IMPRESSION: 1. Correlate for fluid overload state or third spacing given generalized anasarca, trace right pleur al effusion, and moderate presacral edema. 2. CAD. 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 Ectatic mid abdominal aorta measuring up to 2.7 cm. 3. Some hazy density around the pancreas could relate to the anasarca change or mild acute pancreati tis. Correlate with amylase and lipase levels and patient's symptoms. 4. Cholelithiasis but no additional CT findings of acute cholecystitis. 5. Prostatomegaly at 5.3 cm wide. There is lobulated soft tissue measuring 2.6 cm protruding into th e posterior bladder base that could represent prostate cancer or median lobe hypertrophy in the setti ng of BPH. Clinically correlate. 6. Wall thickening along the lesser curvature of the gastric fundus and proximal body. Correlate for gastritis. Direct visualization as indicated to exclude a subtle mucosal lesion/neoplasm. 7. Mild splenomegaly 14.1 cm.
[2019-10-13] MEDS: MELATONIN 5 MG TABLET PO SCH (21:46)
--- NOTE | 2019-10-13 22:53 | PN ---
PROGRESS NOTE DATE OF SERVICE: 10/13/2019 I am covering for Dr. Bradshaw. This 88-year-old gentleman with a past medical history of multiple medical problems admitted with features of acute rhabdomyolysis secondary to a fall. He is being closely monitored. Acute right lower lobe pneumonia was suspected. The gallbladder thickening was noted on ultrasound of the abdomen. No chest pain. No palpitations. No fever. REVIEW OF SYSTEMS: CARDIOVASCULAR SYSTEM: No angina. RESPIRATORY SYSTEM: As mentioned earlier. GI: As mentioned earlier. : No dysuria. NERVOUS SYSTEM: Diffuse tremors and gait dysfunction also present. CURRENT MEDICATIONS: Current medications are reviewed and include: Tylenol, DuoNeb, Symmetrel, aspirin, Zithromax, carbidopa L-dopa, Rocephin, magnesium, Narcan, Protonix, Flomax. Doses are reviewed. PHYSICAL EXAMINATION: On exam, alert and oriented x3. Pulse is 54, blood pressure 109/77, respiration 18, temperature 98.4, pulse ox 98% on room air. HEENT: Conjunctivae normal. NECK: No JVD. CARDIOVASCULAR: S1, S2 muffled. RESPIRATORY: Breath sounds diminished at the bases. No rhonchi, no crackles. ABDOMEN: Soft, nontender. No mass palpable. LEGS: No edema. NERVOUS SYSTEM: No focal deficits. LABS: White count 4.3, hemoglobin 11.1. ASSESSMENT: 1. Acute rhabdomyolysis secondary to fall and lying for 10 hours. 2. Acute right lower lobe pneumonia with possibly aspiration. 3. Acute urinary tract infection, present on admission. 4. Possible gallbladder wall thickening, rule out acute cholecystitis. 5. Mild splenomegaly 14.1 and ectatic abdominal aorta. 6. Elevated troponin of undetermined significance. 7. Hyperbilirubinemia. 8. Elevated LFTs possibly hepatitis of undetermined etiology. 9. Parkinson disease. 10.Gastroesophageal reflux disease. 11.Mild protein-calorie malnutrition. 12.Hypomagnesemia. 13.Gait dysfunction. 14.Medical debility. RECOMMENDATIONS AND DISCUSSION: I recommend to continue current medications and symptomatic treatment. Otherwise at this time I recommend a CT scan of the abdomen and as well as surgical evaluation. Otherwise continue the rest of the medications. Dr. Bernardino Bradshaw will follow. MMODL / IJN: [id number] /
[2019-10-14] MEDS: IPRATROPIUM-ALBUTEROL 3 ML NEB INHALATION SCH ×4 (08:05→20:03)
[2019-10-14] MEDS: CARBIDOPA-LEVODOPA ER 50-200MG 1 EACH TABLET.ER PO SCH ×2 (08:06→14:20)
[2019-10-14] MEDS: CARBIDOPA-LEVODOPA 25-100 MG 1 EACH TAB PO SCH ×2 (08:06→14:20)
[2019-10-14] MEDS: SODIUM CHLORIDE 0.9% 1,000 ML IV SCH (08:06)
[2019-10-14] MEDS: ASPIRIN 81 MG PO SCH (08:06)
[2019-10-14] MEDS: TAMSULOSIN 0.4 MG CAP.ER.24H PO SCH (08:06)
[2019-10-14] MEDS: AZITHROMYCIN 500 MG in SODIUM CHLORIDE 0.9% 250 ML IVPB SCH (09:05)
--- NOTE | 2019-10-14 11:58 | P.GSCN ---
History of Present Illness Consult date: 10/14/19 History of present illness: CHIEF COMPLAINT: Fall with prolonged period of time on the ground HISTORY OF PRESENT ILLNESS: This is a 88-year-old male with a known history of colon cancer requiring possible bowel resection by Dr. Alcantar in 1999, Parkinson's and GERD. He was admitted to hospital due to acute myoclonus secondary to fall. Also treated for acute lower lobe pneumonia. We were consulted in regards to abnormal computed tomography scan of the abdomen. He is also followed by GI service regarding elevated LFTs which they felt likely secondary to rhabdomyolysis. Patient denies any fever, chills or sweats. Denies any nausea or vomiting. He had some abdominal pain across the stomach earlier that didn't get better after passing gas. Patient denies any prior history of EGD. PAST MEDICAL HISTORY: See list. PAST SURGICAL HISTORY: See list. MEDICATIONS: See list. ALLERGIES: See list. SOCIAL HISTORY: No illicit drug use. REVIEW OF SYSTEMS: CONSTITUTIONAL: Denies fever or chills. HEENT: Denies blurred vision, vision changes, or eye pain. Denies hemoptysis CARDIOVASCULAR: Denies chest pain or pressure. RESPIRATORY: No shortness of breath. GASTROINTESTINAL: See HPI for pertinent findings HEMATOLOGIC: Denies bleeding disorders. GENITOURINARY: Denies any blood in urine or increased urinary frequency. SKIN: Denies pruitis. Denies rash. PHYSICAL EXAM: VITAL SIGNS: Reviewed GENERAL: Well-developed in no acute distress. HEENT: No sclera icterus. Extraocular movements grossly intact. Moist buccal mucosa. Head is atraumatic, normocephalic. No nasal drainage. ABDOMEN: Soft. Nontender with palpation. Nondistended. NEUROLOGIC: Alert and oriented. Cranial nerves II through XII grossly intact. LABORATORY DATA: Total bili 0.5 AST is 55 ALT 51 alk phos 157 IMAGING: Computed tomography scan of abdomen and pelvis coronary disease with aneurysm on the descending thoracic aorta 3.5 cm. Mid abdominal aorta measuring 2.7 cm. Some hazy density around the pancreas could really change mild acute pancreatitis. Cholelithiasis but no evidence of CT acute cholecystitis. Prostatomegaly 5.3 cm wide. Lobulated soft tissue measuring 2.6 m protruding into the posterior bladder base that could represent prostate cancer median lobe hypertrophy setting of BPH. Wall thickening along the lesser curvature of the gastric fundus and proximal body. Correlate for gastritis. mild splenomegaly 14.1 cm ASSESSMENT: 1. Wall thickening along the lesser curvature of the gastric fundus and proximal body noted on CAT scan 2. Cholelithiasis 3. History of colon cancer with prior bowel [place] [address] Park 4. Elevated LFTs likely secondary to rhabdomyolysis. LFTs are trending down 5. Parkinson PLAN: -Patient scheduled for EGD tomorrow with Dr. De Anda Thank you for this consultation. We'll continue to follow along during patient's hospitalization . Physician Plater Barrel note has been reviewed by physician. Signing provider agrees with the documented findings, assessment, and plan of care. Past Medical History Past Medical History: GERD/Reflux, Neurologic Disorder Additional Past Medical History / Comment(s): parkinsons History of Any Multi-Drug Resistant Organisms: NEGARE Year Discovered:: 08/09/19 MDRO Source:: Urine Additional Past Surgical History / Comment(s): hemorrhoidectomy Past Anesthesia/Blood Transfusion Reactions: No Reported Reaction Past Psychological History: No Psychological Hx Reported Smoking Status: Never smoker Past Alcohol Use History: Occasional Past Drug Use History: None Reported - Past Family History Father Additional Family Medical History / Comment(s): pt. states nobody in his family really had any major health issues Medications and Allergies Home Medications Medication Instructions Recorded Confirmed Type Acetaminophen [Tylenol Arthritis] 650 mg PO DAILY PRN 10/09/19 10/09/19 History Aspirin EC [Ecotrin Low Dose] 81 mg PO DAILY 10/09/19 10/09/19 History Carbidopa-Levodopa 25-100 mg 1 tab PO BID@0800,1400 10/09/19 10/09/19 History [Sinemet 25-100 mg] Carbidopa-Levodopa ER 50-200Mg 1 tab PO BID@0800,1400 10/09/19 10/09/19 History [Sinemet CR 50-200 mg] Ipratropium-Albuterol Nebulize 3 ml INHALATION RT-QID PRN 10/09/19 10/09/19 History [Duoneb 0.5 mg-3 mg/3 ml Soln] Melatonin 5 mg PO HS 10/09/19 10/09/19 History Omeprazole 20 mg PO DAILY PRN 10/09/19 10/09/19 History Tamsulosin [Flomax] 0.4 mg PO DAILY 10/09/19 10/09/19 History amantadine HCL [Amantadine] 100 mg PO DAILY 10/09/19 10/09/19 History Cefuroxime Axetil [Ceftin] 500 mg PO BID 3 Days #6 tab 10/14/19 Rx Ipratropium-Albuterol Nebulize 3 ml INHALATION Q4H PRN ml 10/14/19 Rx [Duoneb 0.5 mg-3 mg/3 ml Soln] Ipratropium-Albuterol Nebulize 3 ml INHALATION RT-QID ml 10/14/19 Rx [Duoneb 0.5 mg-3 mg/3 ml Soln] Allergies Allergy/AdvReac Type Severity Reaction Status Date / Time No Known Allergies Allergy Unverified 10/09/19 15:39 Surgical - Exam Vital Signs Temp Pulse Resp BP Pulse Ox 97.5 F L 69 18 159/83 97 10/09/19 14:43 10/09/19 14:43 10/09/19 14:43 10/09/19 14:43 10/09/19 14:43 Results - Labs 10/12/19 07:09 10/13/19 07:40 Microbiology - Last 24 Hours (Table) 10/09/19 17:12 Blood Culture - Preliminary Blood No Growth after 96 hours
[2019-10-14 12:33] LABS: Amylase 40 U/L (30-110)
--- NOTE | 2019-10-14 16:44 | P.PN ---
Subjective .This is an 88-year-old gentleman with a history of Parkinson's disease, gastroesophageal reflux disease, occasional beer intake and multiple other medical issues. Patient had recently completed 33 days and subacute rehab at [facility] returning home alone a few weeks ago. Patient states he acute gotten up to the bathroom, voided, then proceeded to get a drink of water, then fell. He landed on his right side, radiology studies reported no dislocations, no fractures .He was unable to get back up and was not wearing his "first alert " band. He laid on the floor from approximately 0300 to 1300, when he was discovered by the [employer] order to delivery supervisor, who notified authorities that patient was not answering the door. He denies any alcohol intake. Denies fever or chills. Denies shortness of breath, denies cough. Denies chest pain, palpitations. Patient said he was probably dizzy. Patient normally ambulates with a walker. Currently denies lightheadedness dizziness or focal deficits. Afebrile, normal WBC. Hemoglobin 11.7, platelets 143. Sodium 139, potassium 3.6, BUN 19, creatinine 1.15. Glucose 109. T bili 3.2, AST 518, ALT 331, alk phos 274, creatinine kinase 907. Troponin 0.041. EKG sinus rhythm with PACs, inferior infarct, age undetermined/no prior EKG for comparison. Total protein 6, albumin 3.3. UA with rare mucus, 4 hyaline casts, negative leukocytes, 1+ bili, moderate blood and negative nitrates, 1+ protein. Chest x-ray reporting increased density right medial lung base possible underlying infiltrate, correlate for pneumonia. Received IV fluids and IV antibiotics. 10/11/19 evaluated by GI with recommendations noted and appreciated. Hepatitis panel pending .Initially scheduled for ultrasound of liver and patient had consumed breakfast so rescheduled for tomorrow. Maintained on IV fluid hydration with LFTs, T bili, CPK improving. Good diet intake. Speech eval uation pending. Afebrile, normal WBC. Denies chest pain, palpitations or shortness of breath. 10/14/2019 Evaluated by GI, surgery and speech therapy. Abdominal ultrasound reported limited exam, nonspecific mild gallbladder wall thickening without acute cholecystitis, no biliary ductal dilatation, mild splenomegaly at 14.1 cm, ectatic and abdominal aorta 2.8 cm. Mild abdominal pain that resolved with passing of flatus reported per patient. 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 ,Prostatomegaly 5.3 cm wide, lobulated measuring 2.6 cm protruding into the posterior bladder base possible prostate cancer or BPH, PSA pending, a curvature of the gastric fundus and proximal body wall thickening, possibly gastritis, possible subtle mucosal lesions/neoplasm, mild splenomegaly. Denies nausea or vomiting. Mild diffuse abdominal pain patient reports subsided after passing flatus. Objective - Vital Signs Vital signs: Vital Signs Temp 97.6 F 10/14/19 09:03 Pulse 78 10/14/19 16:33 Resp 18 10/14/19 09:03 BP 185/82 10/14/19 09:03 Pulse Ox 96 10/14/19 09:03 Intake & Output 10/13/19 10/14/19 10/14/19 18:59 06:59 18:59 Intake Total 1600 Output Total 100 1000 325 Balance -100 600 -325 Weight 81.102 kg 83 kg Intake: Intake, IV Titration 1600 Amount Sodium Chloride 0.9% 1, 1600 000 ml @ 100 mls/hr IV . Q10H [facility] Rx#:[id number] Output: Urine 100 1000 325 Other: Voiding Method Toilet Toilet Toilet Urinal Urinal Urinal Diaper Diaper Diaper Incontinent # Voids 2 5 - Exam PHYSICAL EXAM: VITAL SIGNS: [As above] GENERAL: Sitting up in bed, no acute. HEENT: Conjunctivae normal. eyes normal. No scleral icterus. Oral mucosa moist NECK: No JVD. No thyroid enlargement. No LNs CARDIOVASCULAR: S1, S2 regular. No murmur RESPIRATION: Breath sounds diminished in the bases. No rhonchi or crackles. ABDOMEN: Soft, nondistended, nontender . No guarding. no masses palpable. Positive Bowel sounds heard. LEGS: No edema. no swelling PSYCHIATRY: Alert and oriented X3, mood and affect normal. NERVOUS SYSTEM: Cranial N 2-12 grossly normal. Moves all 4 limbs. Diffuse weakness, No focal deficits. Strength and sensation grossly intact.. Skin: Bruising distal from anterior right rib cage, no rash - Labs CBC & Chem 7: 10/12/19 07:09 10/13/19 07:40 Labs: Microbiology - Last 24 Hours (Table) 10/09/19 17:12 Blood Culture - Preliminary Blood No Growth after 96 hours Assessment and Plan Assessment: Acute rhabdomyolysis ,Status post fall, laid on ground 10 hours Possible acute right lower lobe pneumonia, possible aspiration Possible acute UTI Elevated troponin, suspect related to rhabdomyolysis Hyperbilirubinemia, etiology unclear Elevated LFTs, etiology unclear, suspected related to rhabdomyolysis, acute viral hepatitis panel negative, ultrasound of abdomen reported essentially normal as per GI review. Parkinson's disease Gastroesophageal reflux disease Mild protein calorie malnutrition Hypomagnesemia Gait dysfunction, uses a walker Medical debility Possible gallbladder wall thickening without acute cholecystitis Mild splenomegaly, descending thoracic aorta and ectatic abdominal aortic aneurysm Prostatomegaly 5.3 cm wide, lobulated measuring 2.6 cm protruding into the posterior bladder base possible prostate cancer or BPH, PSA pending. Further follow-up outpatient with urology Curvature of the gastric fundus and proximal body wall thickening, possibly gastritis, possible some dental mucosal lesions/neoplasm. History of colon cancer, bowel resection as per patient with Dr. Park in 1999. Plan: Continue on current medication regime, monitoring and symptomatic treatment. PSA, amylase/lipase results, MBS, pending. Evaluated by surgery and patient is scheduled for EGD tomorrow. Maintain IV fluid hydration. Discharge planning in progress for subacute rehab. After EGD and coronavirus testing resulted. The impression and plan of care has been dictated as directed. : I performed a history and examination of this patient, discussed the same with the dictator. I agree with the dictator's note ,documented as a scribe. Any additional findings or plans will be noted.[id number]
--- NOTE | 2019-10-14 16:49 | FL ---
EXAMINATION TYPE: FL barium swallow w video DATE OF EXAM: 10/14/2019 MODIFIED BARIUM SWALLOW FLUOROSCOPY EXAM CLINICAL HISTORY: Dysphagia. History of Parkinson's disease. TECHNIQUE: Notified barium swallow study is performed utilizing thin liquid barium, honey and nectar thick liquid barium, barium thick puree, and barium coated cracker. COMPARISON: None. FINDINGS: Transient penetration with nectar thick. There is significant vallecular residue which brain rs after swallows of solid food. Decreased epiglottic inversion. No evidence of aspiration. Total fluoroscopy time: 1 minute 57 seconds. IMPRESSION: No evidence of aspiration. Please refer to speech therapist notes for further details i f necessary.
[2019-10-14] MEDS: MELATONIN 5 MG TABLET PO SCH (20:24)
[2019-10-15] MEDS: IPRATROPIUM-ALBUTEROL 3 ML NEB INHALATION SCH ×4 (08:21→20:29)
[2019-10-15] MEDS: CARBIDOPA-LEVODOPA 25-100 MG 1 EACH TAB PO SCH ×2 (08:25→16:36)
[2019-10-15] MEDS: TAMSULOSIN 0.4 MG CAP.ER.24H PO SCH (08:25)
[2019-10-15] MEDS: ASPIRIN 81 MG PO SCH (08:25)
[2019-10-15] MEDS: CARBIDOPA-LEVODOPA ER 50-200MG 1 EACH TABLET.ER PO SCH ×2 (08:25→16:37)
[2019-10-15] MEDS: amLODIPine 5 MG TAB PO SCH (08:39)
[2019-10-15 08:54] LABS: Basophils % (A) 1 %; Eosinophils # (A) 0.4 k/uL (0-0.7); Eosinophils % (A) 7 %; HCT 35.9 % (39.0-53.0); HGB 11.1 gm/dL (13.0-17.5); Lymphocytes # (A) 1.4 k/uL (1.0-4.8); Lymphocytes % (A) 26 %; MCH 28.1 pg (25.0-35.0); MCHC 30.8 g/dL (31.0-37.0); MCV 91.3 fL (80.0-100.0); Mean Platelet Volume 7.3; Monocytes # (A) 0.2 k/uL (0-1.0); Monocytes % (A) 4 %; Neutrophils # (A) 3.2 k/uL (1.3-7.7); Neutrophils % (A) 60 %; Platelet Count 138 k/uL (150-450); RBC 3.94 m/uL (4.30-5.90); RDW 14.6 % (11.5-15.5); WBC 5.4 k/uL (3.8-10.6)
[2019-10-15 09:17] LABS: Calcium 8.9 mg/dL (8.4-10.2); Potassium 3.8 mmol/L (3.5-5.1)
[2019-10-15] MEDS: AZITHROMYCIN 500 MG in SODIUM CHLORIDE 0.9% 250 ML IVPB SCH (12:10)
[2019-10-15] MEDS ORDERED: PROPOFOL 10 MG/ML 20 ML VIAL IV ONE (13:15)
[2019-10-15] MEDS ORDERED: LIDOCAINE 1% INJ 10MG/ML (20 ML MDV) ONE (13:15)
--- NOTE | 2019-10-15 13:27 | P.OP ---
Date of Procedure: 10/15/19 Preoperative Diagnosis: Possible gastric wall thickening of lesser curve Postoperative Diagnosis: Antral gastritis Procedure(s) Performed: EGD Anesthesia: MAC Surgeon: Kamlesh De Anda Pathology: other (Antrum) Condition: stable Disposition: PACU Description of Procedure: The patient's placed on the endoscopy table in the lateral position. She received IV sedation. The gastro-/oropharynx and passed in the esophagus and into the stomach. Scope then placed through the pylorus into the first and second portion of the duodenum. Scope was then brought back the antrum and this was mildly inflamed a biopsies performed. The patient appears CAT scan which showed thickening along the lesser curvature of the stomach. The lesser curvature was examined. There is no evidence of any chronic irritation or inflammation or any evidence of any gastric mass along the lesser curve and stomach. Several photographs are taken. The scope was then retroflexed and there was a hiatal hernia noted. The GE junction was at 38 cm. The distal esophagus appeared inflamed. The proximal esophagus appeared normal. Scope was withdrawn for patient.
--- NOTE | 2019-10-15 14:50 | P.PN ---
Subjective Progress Note Date: 10/15/19 .This is an 88-year-old gentleman with a history of Parkinson's disease, gastroesophageal reflux disease, occasional beer intake and multiple other medical issues. Patient had recently completed 33 days and subacute rehab at [facility] returning home alone a few weeks ago. Patient states he acute gotten up to the bathroom, voided, then proceeded to get a drink of water, then fell. He landed on his right side, radiology studies reported no dislocations, no fractures .He was unable to get back up and was not wearing his "first alert " band. He laid on the floor from approximately 0300 to 1300, when he was discovered by the [employer] delivery table feeder, who notified authorities that patient was not answering the door. He denies any alcohol intake. Denies fever or chills. Denies shortness of breath, denies cough. Denies chest pain, palpitations. Patient said he was probably dizzy. Patient normally ambulates with a walker. Currently denies lightheadedness dizziness or focal deficits. Afebrile, normal WBC. Hemoglobin 11.7, platelets 143. Sodium 139, potassium 3.6, BUN 19, creatinine 1.15. Glucose 109. T bili 3.2, AST 518, ALT 331, alk phos 274, creatinine kinase 907. Troponin 0.041. EKG sinus rhythm with PACs, inferior infarct, age undetermined/no prior EKG for comparison. Total protein 6, albumin 3.3. UA with rare mucus, 4 hyaline casts, negative leukocytes, 1+ bili, moderate blood and negative nitrates, 1+ protein. Chest x-ray reporting increased density right medial lung base possible underlying infiltrate, correlate for pneumonia. Received IV fluids and IV antibiotics. 10/11/19 evaluated by GI with recommendations noted and appreciated. Hepatitis panel pending .Initially scheduled for ultrasound of liver and patient had consumed breakfast so rescheduled for tomorrow. Maintained on IV fluid hydration with LFTs, T bili, CPK improving. Good diet intake. Speech evaluation pending. Afebrile, normal WBC. Denies chest pain, palpitations or shortness of breath. 10/14/2019 Evaluated by GI, surgery and speech therapy. Abdominal ultrasound reported limited exam, nonspecific mild gallbladder wall thickening without acute cholecystitis, no biliary ductal dilatation, mild splenomegaly at 14.1 cm, ectatic and abdominal aorta 2.8 cm. Mild abdominal pain that resolved with passing of flatus reported per patient. 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 ,Prostatomegaly 5.3 cm wide, lobulated measuring 2.6 cm protruding into the posterior bladder base possible prostate cancer or BPH, PSA pending, a curvature of the gastric fundus and proximal body wall thickening, possibly gastritis, possible subtle mucosal lesions/neoplasm, mild splenomegaly. Denies nausea or vomiting. Mild diffuse abdominal pain patient reports subsided after passing flatus. 10/15/19 NPO, scheduled for EGD this morning. Hypertensive, Norvasc added to med regimen. Amylase/lipase within normal limits. No nausea/vomiting. Denies abdominal pain. PSA pending. Objective - Vital Signs Vital signs: Vital Signs Temp 97.7 F 10/15/19 07:23 Pulse 64 10/15/19 12:00 Resp 17 10/15/19 12:00 BP 181/85 10/15/19 07:23 Pulse Ox 97 10/15/19 07:23 Intake & Output 10/14/19 10/15/19 10/15/19 18:59 06:59 18:59 Intake Total 100 Output Total 325 550 Balance -325 -450 Weight 81.5 kg Intake: Oral 100 Output: Urine 325 550 Other: Voiding Method Toilet Diaper Diaper Urinal Incontinent Incontinent Diaper Incontinent - Exam PHYSICAL EXAM: VITAL SIGNS: [As above] GENERAL: Sitting up in bed, no acute distress. HEENT: Conjunctivae normal. eyes normal. Oral mucosa is dry NECK: No JVD. No thyroid enlargement. No LNs CARDIOVASCULAR: S1, S2 regular. No murmur RESPIRATION: Breath sounds diminished in the bases. No rhonchi or crackles. No wheezing. ABDOMEN: Soft, nondistended, nontender . No guarding. no masses palpable. Positive Bowel sounds heard. LEGS: No edema. no swelling PSYCHIATRY: Alert and oriented X3, mood and affect normal. NERVOUS SYSTEM: Cranial N 2-12 grossly normal. Moves all 4 limbs. Diffuse weakness, No focal deficits. Strength and sensation grossly intact.. - Labs CBC & Chem 7: 10/15/19 08:30 10/15/19 08:30 Labs: Abnormal Lab Results - Last 24 Hours (Table) 10/15/19 Range/Units 08:30 RBC 3.94 L (4.30-5.90) m/uL Hgb 11.1 L (13.0-17.5) gm/dL Hct 35.9 L (39.0-53.0) % MCHC 30.8 L (31.0-37.0) g/dL Plt Count 138 L (150-450) k/uL Microbiology - Last 24 Hours (Table) 10/09/19 17:12 Blood Culture - Preliminary Blood No Growth after 120 hours Assessment and Plan Assessment: Acute traumatic rhabdomyolysis , secondary to fall with prolonged immobility, laid on ground 10 hours. Possible acute right lower lobe pneumonia, possible aspiration Possible acute UTI Elevated troponin, suspect related to rhabdomyolysis Hyperbilirubinemia, etiology unclear Elevated LFTs, etiology unclear, suspected related to rhabdomyolysis, acute viral hepatitis panel negative, ultrasound of abdomen reported essentially normal as per GI review. Parkinson's disease Gastroesophageal reflux disease Mild protein calorie malnutrition Hypomagnesemia Gait dysfunction, uses a walker Medical debility Possible gallbladder wall thickening without acute cholecystitis Mild splenomegaly, descending thoracic aorta and ectatic abdominal aortic aneurysm, follow-up outpatient Prostatomegaly 5.3 cm wide, lobulated measuring 2.6 cm protruding into the posterior bladder base possible prostate cancer or BPH, PSA pending. Further follow-up outpatient. Curvature of the gastric fundus and proximal body wall thickening, possibly gastritis, possible some dental mucosal lesions/neoplasm. History of colon cancer, bowel resection as per patient with Dr. Park in 1999. Plan: Continue on current medication regime, monitoring and symptomatic treatment. NPO with EGD scheduled today.PSA pending, with further workup outpatient.Discharge planning in progress for subacute rehab. tomorrow morning. The impression and plan of care has been dictated as directed. : I performed a history and examination of this patient, discussed the same with the dictator. I agree with the dictator's note ,documented as a scribe. Any additional findings or plans will be noted.[id number]
[2019-10-15] MEDS: MELATONIN 5 MG TABLET PO SCH (20:42)
[2019-10-16] MEDS: IPRATROPIUM-ALBUTEROL 3 ML NEB INHALATION SCH ×2 (07:14→11:10)
[2019-10-16 07:51] VITALS: BP 177/81; RESP 16; TEMP 97.8
[2019-10-16] MEDS ORDERED: AZITHROMYCIN 500 MG TAB PO SCH (09:00)
[2019-10-16] MEDS: TAMSULOSIN 0.4 MG CAP.ER.24H PO SCH (09:37)
[2019-10-16] MEDS: ASPIRIN 81 MG PO SCH (09:37)
[2019-10-16] MEDS: CARBIDOPA-LEVODOPA ER 50-200MG 1 EACH TABLET.ER PO SCH (09:37)
[2019-10-16] MEDS: amLODIPine 5 MG TAB PO SCH (09:38)
[2019-10-16] MEDS: CARBIDOPA-LEVODOPA 25-100 MG 1 EACH TAB PO SCH (09:38)
[2019-10-16 11:13] VITALS: PULSE 69
--- NOTE | 2019-10-16 11:19 | P.DS ---
Providers Date of admission: 10/09/19 16:52 Attending physician: Bernardino Bradshaw Consults: 10/13/19 15:43 Consult Physician Routine Consulting Provider: Kamlesh De Anda Consult Reason/Comments: abnormal ct abdomen Do you want consulting provider notified?: Yes Primary care physician: Bernardino Bradshaw [facility] Course: Final Diagnoses: Acute traumatic rhabdomyolysis , secondary to fall with prolonged immobility, laid on ground 10 hours, improved Possible acute right lower lobe pneumonia, mild impairment in swallowing as per MBS, possibly community-acquired. Possible acute UTI Elevated troponin, suspect related to rhabdomyolysis Hyperbilirubinemia, etiology unclear Elevated LFTs, etiology unclear, suspected related to rhabdomyolysis, acute viral hepatitis panel negative, ultrasound of abdomen reported essentially normal as per GI review. Parkinson's disease Gastroesophageal reflux disease Mild protein calorie malnutrition Hypomagnesemia Gait dysfunction, uses a walker Medical debility Cholelithiasis without acute cholecystitis Mild splenomegaly, descending thoracic aorta and ectatic abdominal aortic aneurysm, follow-up outpatient Prostatomegaly 5.3 cm wide, lobulated measuring 2.6 cm protruding into the posterior bladder base possible prostate cancer or BPH, elevated PSA,10.5 . Further follow-up outpatient with urology. Curvature of the gastric fundus and proximal body wall thickening, possibly gastritis, possible some dental mucosal lesions/neoplasm per CT EGD reported no chronic irritation, inflammation or evidence of gastric mass along the lesser curve stomach. Biopsies pending. History of colon cancer, bowel resection as per patient with Dr. Park in 1999. Hospital course:.This is an 88-year-old gentleman with a history of Parkinson's disease, gastroesophageal reflux disease, occasional beer intake and multiple other medical issues. Patient had recently completed 33 days and subacute rehab at [facility] returning home alone a few weeks ago. Patient states he acute gotten up to the bathroom, voided, then proceeded to get a drink of water, then fell. He landed on his right side, radiology studies reported no dislocations, no fractures .He was unable to get back up and was not wearing his "first alert " band. He laid on the floor from approximately 0300 to 1300, when he was discovered by the [employer] delivery clerk, who notified authorities that patient was not answering the door. He denies any alcohol intake. Denies fever or chills. Denies shortness of breath, denies cough. Denies chest pain, palpitations. Patient said he was probably dizzy. Patient normally ambulates with a walker. Currently denies lightheadedness dizziness or focal deficits. Afebrile, normal WBC. Hemoglobin 11.7, platelets 143. Sodium 139, potassium 3.6, BUN 19, creatinine 1.15. Glucose 109. T bili 3.2, AST 518, ALT 331, alk phos 274, creatinine kinase 907. Troponin 0.041. EKG sinus rhythm with PACs, inferior infarct, age undetermined/no prior EKG for comparison. Total protein 6, albumin 3.3. UA with rare mucus, 4 hyaline casts, negative leukocytes, 1+ bili, moderate blood and negative nitrates, 1+ protein. Chest x-ray reporting increased density right medial lung base possible underlying infiltrate, correlate for pneumonia. Received IV fluids and IV antibiotics. 10/11/19 evaluated by GI with recommendations noted and appreciated. Hepatitis panel pending .Initially scheduled for ultrasound of liver and patient had consumed breakfast so rescheduled for tomorrow. Maintained on IV fluid hydration with LFTs, T bili, CPK improving. Good diet intake. Speech evaluation pending. Afebrile, normal WBC. Denies chest pain, palpitations or shortness of breath. 10/14/2019 Evaluated by GI, surgery and speech therapy. Abdominal ultrasound reported limited exam, nonspecific mild gallbladder wall thickening without acute cholecystitis, no biliary ductal dilatation, mild splenomegaly at 14.1 cm, ectatic and abdominal aorta 2.8 cm. Mild abdominal pain that resolved with passing of flatus reported per patient. 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 ,Prostatomegaly 5.3 cm wide, lobulated measuring 2.6 cm protruding into the posterior bladder base possible prostate cancer or BPH, PSA pending, a curvature of the gastric fundus and proximal body wall thickening, possibly gastritis, possible subtle mucosal lesions/neoplasm, mild splenomegaly. Denies nausea or vomiting. Mild diffuse abdominal pain patient reports subsided after passing flatus. 10/15/19 NPO, scheduled for EGD this morning. Hypertensive, Norvasc added to med regimen. Amylase/lipase within normal limits. No nausea/vomiting. Denies abdominal pain. PSA pending. Son Dion in [place] was updated yesterday by PCP, Dr. Bradshaw .Underwent EGD showing antral gastritis, hiatal hernia, biopsies obtained, pending. Tolerated procedure well. Significant clinical improvement. Patient will be discharged to [facility] rehab in a stable condition with guarded prognosis, today, pending final DC recommendations and clearance from surgery. Patient did have elevated PSA at 10.5, with recommended follow-up with urology in 1 week. The impression and plan of care has been dictated as directed. : I performed a history and examination of this patient, discussed the same with the dictator. I agree with the dictator's note ,documented as a scribe. Any additional findings or plans will be noted. Patient Condition at Discharge: Stable Plan - Discharge Summary Discharge Rx Participant: No New Discharge Prescriptions: New Cefuroxime Axetil [Ceftin] 500 mg PO BID 3 Days #6 tab Ipratropium-Albuterol Nebulize [Duoneb 0.5 mg-3 mg/3 ml Soln] 3 ml INHALATION RT-QID ml Ipratropium-Albuterol Nebulize [Duoneb 0.5 mg-3 mg/3 ml Soln] 3 ml INHALATION Q4H PRN ml PRN Reason: Shortness Of Breath Or Wheezing amLODIPine [Norvasc] 5 mg PO DAILY tab Continue Tamsulosin [Flomax] 0.4 mg PO DAILY Aspirin EC [Ecotrin Low Dose] 81 mg PO DAILY Carbidopa-Levodopa 25-100 mg [Sinemet 25-100 mg] 1 tab PO BID@0800,1400 Carbidopa-Levodopa ER 50-200Mg [Sinemet CR 50-200 mg] 1 tab PO BID@0800,1400 amantadine HCL [Amantadine] 100 mg PO DAILY Omeprazole 20 mg PO DAILY PRN PRN Reason: Heartburn Melatonin 5 mg PO HS Acetaminophen [Tylenol Arthritis] 650 mg PO DAILY PRN PRN Reason: Pain Discontinued Ipratropium-Albuterol Nebulize [Duoneb 0.5 mg-3 mg/3 ml Soln] 3 ml INHALATION RT-QID PRN PRN Reason: Shortness Of Breath Discharge Medication List Acetaminophen [Tylenol Arthritis] 650 mg PO DAILY PRN 10/09/19 [History] Aspirin EC [Ecotrin Low Dose] 81 mg PO DAILY 10/09/19 [History] Carbidopa-Levodopa 25-100 mg [Sinemet 25-100 mg] 1 tab PO BID@0800,1400 10/09/19 [History] Carbidopa-Levodopa ER 50-200Mg [Sinemet CR 50-200 mg] 1 tab PO BID@0800,1400 10/09/19 [History] Melatonin 5 mg PO HS 10/09/19 [History] Omeprazole 20 mg PO DAILY PRN 10/09/19 [History] Tamsulosin [Flomax] 0.4 mg PO DAILY 10/09/19 [History] amantadine HCL [Amantadine] 100 mg PO DAILY 10/09/19 [History] Cefuroxime Axetil [Ceftin] 500 mg PO BID 3 Days #6 tab 10/14/19 [Rx] Ipratropium-Albuterol Nebulize [Duoneb 0.5 mg-3 mg/3 ml Soln] 3 ml INHALATION Q4H PRN ml 10/14/19 [Rx] Ipratropium-Albuterol Nebulize [Duoneb 0.5 mg-3 mg/3 ml Soln] 3 ml INHALATION RT-QID ml 10/14/19 [Rx] amLODIPine [Norvasc] 5 mg PO DAILY tab 10/16/19 [Rx] Follow up Appointment(s)/Referral(s): Bernardino Bradshaw DO [Primary Care Provider] - 1 Week (After DC from subacute rehab) Yoshi Pickett MD [STAFF PHYSICIAN] - 1 Week (Abnormal ultrasound) Activity/Diet/Wound Care/Special Instructions: [facility] final DC recommendations and clearance, CBC, BMP in 3 days Diet: Regular, thin liqu Base of tongue exercises, sitting upright at 90 with eating, double swallow, liquids from, cup, small bites and sepsis ST services to establish HEP of posterior tonguebase retraction & reduce Valleculae residuals. Discharge Disposition: TRANSFER TO SNF/ECF
--- NOTE | 2019-10-16 14:42 | P.PN ---
Subjective Progress Note Date: 10/16/19 CHIEF COMPLAINT: Fall with prolonged period of time on the ground HISTORY OF PRESENT ILLNESS: We're following due to abnormal computed tomography scan of the abdomen reporting possible gastric wall thickening of the lesser curvature. EGD was completed showing antral gastritis. Afebrile. Tolerating diet. No nausea or vomiting. PHYSICAL EXAM: VITAL SIGNS: Reviewed. GENERAL: Well-developed in no acute distress. HEENT: No sclera icterus. Extraocular movements grossly intact. Moist buccal mucosa. Head is atraumatic, normocephalic. ABDOMEN: Soft. Nondistended. Nontender. NEUROLOGIC: Alert and oriented. Cranial nerves II through XII grossly intact. ASSESSMENT: 1. Abnormal CAT scan finding with possible gastric wall thickening of lesser curvature status post EGD revealing antral gastritis 2. Antral gastritis PLAN: -Continue regular diet -Patient is stable from surgical standpoint for discharge Physician Bank Compliance Officer note has been reviewed by physician. Signing provider agrees with the documented findings, assessment, and plan of care. Objective - Vital Signs Vital signs: Vital Signs Temp 97.8 F 10/16/19 07:08 Pulse 69 10/16/19 11:21 Resp 16 10/16/19 08:00 BP 177/81 10/16/19 07:08 Pulse Ox 96 10/16/19 07:08 Intake & Output 10/15/19 10/16/19 10/16/19 18:59 06:59 18:59 Intake Total 480 200 Output Total 1200 950 Balance -720 -750 Weight 76 kg Intake: Intake, IV Titration 300 Amount Azithromycin 500 mg In 250 Sodium Chloride 0.9% 250 ml @ 250 mls/hr IVPB DAILY [facility] Rx#:[id number] cefTRIAXone 1 gm In 50 Sodium Chloride 0.9% 50 ml @ 100 mls/hr IVPB Q24HR [facility] Rx#:[id number] Oral 180 200 Output: Urine 1200 950 Other: Voiding Method Diaper Diaper Diaper Incontinent Incontinent Incontinent # Bowel Movements 900 1 - Labs CBC & Chem 7: 10/15/19 08:30 10/15/19 08:30 Labs: Abnormal Lab Results - Last 24 Hours (Table) 10/14/19 Range/Units 11:57 Total PSA 10.5 H (<=4.0) ng/mL Microbiology - Last 24 Hours (Table) 10/09/19 17:12 Blood Culture - Final Blood No Growth after 144 hours
== END 2019-10-16 14:33 | DRG 564 ==
LOC: EC 14:42 → 3SCARD 16:52 → 4SSUR 10-11 14:29
PROVIDERS: ADMIT Family Medicine; ATTEND Family Medicine
PROC: 0DB78ZX Excision of Stomach, Pylorus, Via Natural or Artificial Opening Endoscopic, Diagnostic (ICD-10-PCS; principal; 2019-10-15 12:30)
DX: T79.6XXA Traumatic ischemia of muscle, initial encounter (principal); J18.9 Pneumonia, unspecified organism; E44.1 Mild protein-calorie malnutrition; N39.0 Urinary tract infection, site not specified; W18.30XA Fall on same level, unspecified, initial encounter; Y92.009 Unspecified place in unspecified non-institutional (private) residence as the place of occurrence of the external cause; E83.42 Hypomagnesemia; G20 Parkinson's disease; G25.3 Myoclonus; I77.811 Abdominal aortic ectasia; K21.9 Gastro-esophageal reflux disease without esophagitis; K29.70 Gastritis, unspecified, without bleeding; K80.20 Calculus of gallbladder without cholecystitis without obstruction; N40.0 Benign prostatic hyperplasia without lower urinary tract symptoms; C61 Malignant neoplasm of prostate; Z20.828 Contact with and (suspected) exposure to other viral communicable diseases; Z60.2 Problems related to living alone; R79.89 Other specified abnormal findings of blood chemistry; R94.5 Abnormal results of liver function studies; K44.9 Diaphragmatic hernia without obstruction or gangrene; E66.9 Obesity, unspecified; Z68.25 Body mass index [BMI] 25.0-25.9, adult; Z66 Do not resuscitate; R13.10 Dysphagia, unspecified; R16.1 Splenomegaly, not elsewhere classified; R26.9 Unspecified abnormalities of gait and mobility; R53.81 Other malaise; E80.6 Other disorders of bilirubin metabolism; Z79.82 Long term (current) use of aspirin; Z79.899 Other long term (current) drug therapy; Z85.038 Personal history of other malignant neoplasm of large intestine; Z90.49 Acquired absence of other specified parts of digestive tract
CPT/HCPCS: 36415; 43239; 70450; 71045; 72125; 72170; 74176; 74230; 76700; 80048; 80053; 80074; 81001; 82150; 82550; 83605; 83690; 83735; 84153; 84484; 85025; 85027; 85610; 85730; 87040; 88305; 93005; 94640; 96365; 96375; 99285